=== PATIENT | female | born 1960 | race Caucasian/White ===

== ENCOUNTER 2016-11-29 20:53 | Inpatient (IN) | payer BC ==
[~2016-11-29] VITALS: Ht 167.6 cm; Wt 135.9 kg
--- NOTE | ~2016-11-29 | PR ---
[place], [place] PROGRESS NOTE NAME: AJAY MELENDEZ [facility] #: [id number] UNIT #: [id number] ROOM: 402 DOCTOR: JOSI MURO MD,JES BIRTHDATE: [birth year] DOS: 12/03/2016 SUBJECTIVE: She has been noted reduction in respiratory symptom. There was no hemoptysis described in the last 3 days. The coughing has improved significantly. There was no chest pain. OBJECTIVE: VITAL SIGNS: Normal temperature, respiratory rate 18, heart rate 116, blood pressure 165/78. Pulse oxygen saturation on room air was 93% saturation. HEENT: Chronic obesity. NECK: Supple. CARDIOVASCULAR: S1, S2 audible. LUNGS: Without any wheeze or crackles at this time. ABDOMEN: Soft, nontender. LABORATORY DATA: BMP: Glucose was elevated at 289. Remaining electrolytes grossly normal. CBC, mild leukocytosis with WBC count of 11,000. The chest x-ray of the patient done this morning shows marked reduction and improvement in the area of consolidation of the right middle lobe. However, the resolution was still noted incomplete. IMPRESSION: 1. Atypical consolidation acute pneumonia, which has been improving progressively. 2. Hemoptysis, which has been noted only on admission, resolved completely at this time. PLAN OF TREATMENT: The patient could be discharged on oral antibiotics. Outpatient followup suggested postdischarge to monitor the current abnormality of the right middle lobe until complete resolution. JES PRATER MD CM:PNTRANS [id number] JES MURO MD 12/04/16 0707 interface
--- NOTE | ~2016-11-29 | CON ---
[place], [place] REPORT OF CONSULTATION NAME: AJAY MELENDEZ [facility] #: [id number] UNIT #: [id number] ROOM: 402 DOCTOR: JES MARX MD BIRTHDATE: [birth year] DOS: 12/01/2016 DATE OF SERVICE: 12/01/2016 CONSULTATION REQUESTED BY: Hospitalist services. REASON FOR CONSULTATION: To assess the patient's symptoms of shortness of breath, pneumonia and others. HISTORY OF PRESENT ILLNESS: A 56-year-old female who has been known to me from the past. The patient has been admitted to the hospital in April 2015. She has been noted with acute exacerbation of bronchial asthma at that time with acute bilateral lower lobe pneumonia with a very resistant infection, ESBL producing E. coli. The patient was treated in the hospital and [facility] with complete resolution of all the acute symptoms including pneumonia. She was noted in usual state of health and has been admitted under care of the hospitalist service, came in on 11/30/2016 because of increased shortness of breath. The patient's symptoms of shortness of breath started at least 5 days ago. For the past 3 days, she has been noted with a cough with hemoptysis which was mixed with the mucus as per patient. The symptoms have been noted intermittently at times. The patient denies any symptoms of wheezing. She does complain of pain, which is described to be on the right side of the chest, moderate to severe, nonradiating, worsens with cough. The patient denies any symptoms of chest trauma. REVIEW OF SYSTEMS: CONSTITUTIONAL: She does complain of fatigue and tiredness, fever or chills prior to admission to the hospital. HEENT: Eyes: Denies any discharge, burning, redness, or diplopia. Ear, Nose and Throat: Denies any symptoms of epistaxis, postnasal drainage, sore throat, hoarseness, or earache. CARDIOVASCULAR: Denies anginal pain or palpitations. GASTROINTESTINAL: Denies symptoms of nausea, vomiting, diarrhea, abdominal pain, hematemesis, melena, or hematochezia. GENITOURINARY: Denies dysuria, suprapubic pain, or hematuria. SKIN: Denies any lesions or rashes. MUSCULOSKELETAL: Denies acute joint pain, redness, or tenderness. CENTRAL NERVOUS SYSTEM: Denies dizziness, headache, diplopia or syncopal episodes. EXTREMITIES: Denies any symptoms of pain in the lower extremities. Remaining systems were reviewed and they were noted all negative. PAST MEDICAL HISTORY: Review for the patient were done on 04/2015 admission. 1. The patient remained in the hospital for several days, treated for acute respiratory failure, for acute exacerbation of bronchial asthma and acute E. Coli pneumonia, was noted ESBL producing species. 2. Past history of uncomplicated moderate persistent bronchial asthma. 3. Type 2 diabetes mellitus. 4. Chronic obesity. [place], [place] REPORT OF CONSULTATION NAME: AJAY MELENDEZ UNIT #: [id number] ROOM: 402 DOCTOR: JES MARX MD BIRTHDATE: [birth year] 5. Essential hypertension. 6. History of hypothyroidism. 7. Acute pneumonia for this patient in April 2015. 8. History of allergic rhinitis as well. 9. History of morbid obesity with BMI 46 or greater. 10. History of hyperlipidemia. PAST SURGICAL HISTORY: 1. Surgery of the lower back. 2. Surgery of the sinuses. 3. Therapeutic bronchoscopy that was done in 04/2015 admission. SOCIAL HISTORY: The patient is , lives at home, and has one child. There was no history of alcohol or illicit drug use, tobacco use or any occupation-related pulmonary exposure history was known. FAMILY HISTORY: Noted for diabetes mellitus. MEDICATIONS: Current administered medications noted use of Levemir insulin, albuterol sulfate with p.r.n. use of DuoNeb, Advair 500/50 one inhalation b.i.d., Mucinex 1200 mg b.i.d., Solu-Medrol 60 mg t.i.d., Flonase 1 spray each nostril b.i.d., vitamin D, magnesium oxide, potassium chloride, fenofibrate, Singulair, loratadine with pseudoephedrine combination, lisinopril, levothyroxine, IV Rocephin and Zithromax. DRUG ALLERGIES: THE PATIENT WAS NOTED TO HAVE ALLERGY TO: 1. ASPIRIN. 2. BACTRIM. 3. PHENERGAN. PHYSICAL EXAMINATION: GENERAL: A 56-year-old female who has been noted currently without any acute distress. VITAL SIGNS: Height of 5 feet 6 inches, weight of 299 pounds, BMI 48.8. The vital signs for the patient which were recorded showed the temperature noted at 99 degrees Fahrenheit, normal temperature since admission. The respiratory rate ranging between 18-22, heart rate 99-120 with sinus tachycardia, blood pressure 140/71 to 144/87. HEENT: Finding of rosacea of the cheek for the patient was considered. NECK: Supple, short and obese. Decreased posterior pharyngeal space with high tongue base. CARDIOVASCULAR: S1, S2 is audible. LUNGS: The patient was noted with moderate decreased breath sounds with expiratory wheezing. Occasional crackles on the right side was noted. ABDOMEN: Soft, obese, nontender. EXTREMITIES: The patient shows chronic obesity without any edema, clubbing or cyanosis. CENTRAL NERVOUS SYSTEM: The patient was noted without any gross focal neurologic deficit. EXTREMITIES: Show no edema, clubbing or cyanosis. [place], [place] REPORT OF CONSULTATION NAME: AJAY MELENDEZ UNIT #: [id number] ROOM: [facility] DOCTOR: JES MARX MD BIRTHDATE: [birth year] CENTRAL NERVOUS SYSTEM: Cranial nerves 2-12 intact. MUSCULOSKELETAL: Were not showing any acute deformities. LABORATORY DATA: Lactic acid on 11/29/2016 was normal. 11/29/2016 CBC: WBC count of 20.5, hemoglobin 14.1, hematocrit 43.6, platelet count 277,000. BMP with glucose 332. BUN and creatinine was normal, sodium 131. Remaining electrolytes were normal. LFTs for the patient, which were also done on 11/29/2016 were noted as grossly normal except bilirubin mildly elevated at 1.1, is a total bilirubin. PT/PTT for the patient on 11/29/2016 were normal. CBC yesterday, WBC count was 18.1, remaining CBC remains unchanged as of yesterday. CMP: Glucose of 362, sodium was noted at ____. Remaining electrolytes were normal. Blood cultures from the of this month, preliminary reported no bacterial growth after the 48 hours. Final culture results were pending. CBC this morning: WBC count was 15.7, hemoglobin 12.8, hematocrit 41.3, platelet count 216,000. Review of the radiology data: Area of right middle lobe atelectasis. The patient was noted with possibility of infiltration. These findings were considered new as compared with the chest x-ray of the patient from 04/28/2015. CTA of the chest was also done for this patient, which has been ordered by the hospitalist services on 11/30/2016, was reviewed. There was no evidence of pulmonary embolism. Review of the lung windows for this patient was noted with finding of some ground glass opacity sparing some of the lung. Large consolidation. The patient was noted with some air bronchogram involving the medial subsegment of the right lower lobe. Remaining lung was noted clear. The review of the mediastinal window for this patient was also completed. There was no significant lymphadenopathy noted in the mediastinum. IMPRESSION: 1. The patient who has been currently admitted to the hospital with severe pain in the chest associates with respiratory symptoms. Current abnormality suggests most likely acute bacterial pneumonia, community-acquired infection resulting in hemoptysis. However, the abnormality need to be closely monitored until resolution because of the hemoptysis and current appearance. The differential of the pneumonia would be considered non-aspiration pneumonia for patient such as Legionella pneumonia and streptococcal pneumonia. 2. The patient with immunosuppression with history of type 2 diabetes mellitus. The patient was also noted with past history of pneumonia and second pneumonia the patient has been noted at this time. The patient does not manifest any GI symptoms suggestive of aspirations. 3. Acute exacerbation of bronchial asthma noted as well at the present time. 5. History of chronic obesity suggestive of possibility of obstructive sleep apnea disorder as well. PLAN OF MANAGEMENT: IgG and IgG subclasses will be ordered for this patient for the assessment of the immune status. IV Solu-Medrol dose will be decreased for this patient in the lower dose because of reduction in the wheezing. Continue monitoring results of the sputum culture as well as the blood cultures. Close monitoring for the hemoptysis, consideration for the bronchoscopy again for the patient possibly on this admission to exclude any endobronchial lesions. Bronchodilator will be continued previously in progress. Usual care, other supportive plan of management. No changes in the treatment for this patient for [place], [place] REPORT OF CONSULTATION NAME: AJAY MELENDEZ UNIT #: [id number] ROOM: 402 DOCTOR: JES MARX MD BIRTHDATE: [birth year] the other management, plan of care. Usual care. The patient is also getting amoxicillin that will be discontinued, as the use of the amoxicillin would not be necessary since the patient is already getting adequate antibiotics for coverage of all the current suspected infections. Close monitoring chest x-ray, followup chest x-ray will be done for this patient in the next couple of days to reassess the progression of the current disease. Sputum for Gram stain culture was ordered as well. The ESR was also ordered to assess the inflammation burden. Additional treatment changes to be made for this patient based on progression of the illness. DVT prophylaxis with SCD for this patient as well. Thanks for allowing me to participate in the care of this patient. JES PRATER MD CM:CONSTR:REPORT OF CONSULTATION 1217 12/04/16 0323 interface
--- NOTE | ~2016-11-29 | PR ---
[place], [place] PROGRESS NOTE NAME: AJAY MELENDEZ [facility] #: [id number] UNIT #: [id number] ROOM: 402 DOCTOR: JES MARX MD BIRTHDATE: [birth year] DOS: 12/02/2016 SUBJECTIVE: The patient has been noted comfortable at this time without any distress. Denies any further episodes of hemoptysis. Shortness of breath has been decreasing. She has not been using the BiPAP at this time, which has been ordered at the beginnings used by the patient for a few hours. OBJECTIVE: VITAL SIGNS: Shows a normal temperature, respiratory rate 20, heart rate 74, blood pressure 149/60. The pulse oxygen saturation on 2 liters cannula 94% saturation recorded. HEENT: Examination showed no acute change. NECK: Supple. CARDIOVASCULAR: S1, S2 audible. LUNGS: Noted with [id number] decreased breath sounds bilaterally. ABDOMEN: Soft, nontender. LABORATORY DATA: For today, BMP that was done this morning showed glucose 304, BUN and creatinine other electrolytes all normal. CBC this morning, WBC count 14.6, hemoglobin and hematocrit normal, platelet count was noted as normal. ESR was noted, which was done on the 12/01/2016 as 45. The blood culture from the 14 of this month for admission showed no bacterial growth. IMPRESSION: 1. Acute large pneumonia with consolidation, rule out any malignancy underlying for this patient with possible endobronchial obstruction in the right middle lobe. 2. Chronic obesity with diabetes mellitus as well. 3. Rule out immunodeficiency. PLAN OF MANAGEMENT: Repeat chest x-ray of the patient for the morning has been ordered. Continuation of current antibiotics, bronchodilators. Discontinue the BiPAP since the patient has not been using the BiPAP at this time. Other plan of management to be continued as previously. Usual care, other supportive plan of therapy and treatments. Continue maximizing medical management of uncontrolled diabetes mellitus. She had the blood glucose still noticed significantly elevated. Supportive care, plan of management and treatment. The treatment changes for the patient needs to be made for this patient based on the progression of the illness. [place], [place] PROGRESS NOTE NAME: AJAY MELENDEZ [facility] #: [id number] UNIT #: [id number] ROOM: 402 DOCTOR: JES MARX MD BIRTHDATE: [birth year] JES PRATER MD CM:LEANN [id number] JES MURO MD 12/03/16 1207 interface
[~2016-11-29 20:53] MED LIST: ADVAIR 500/501 E1 INH; ADVAIR 500/501 EA INH; ALBUTEROL2 MG PO; ALBUTEROL2.5 MG/0.5 INH; ALLEGRA-D 60 MG1 TE1 PO; ALLEGRA-D 60MG60 MG PO; AMOXICILLIN500 M2 PO; ANTIVERT/2525 M1 PO; CLINDAMYCIN HC300 MG PO; FENOFIBRATE145 M1 PO; FENOFIBRATE145 MG PO; HUMALOG100 U/ML SC; INVANZ1 GM/50 ML IV; KLOR-CON M2020 ME1 PO; LANTUS SOLOS100 U/M1 SC; LANTUS100 U/ML SC; LEVOFLOXACIN500 MG PO; LEVOTHYROXINE0.1 M1 PO; LEVOTHYROXINE0.1 MG PO; LISINOPRIL20 MG PO; LOTEMAX 0.5% 1010 ML OPH; LOTEMAX5 GM OP; MAGNESIUM OXID400 MG PO; MAGNESIUM400 M1 PO; Meclizine25 MG PO; NASACORT A55 MCG/Act NS; NASONEX0.05 MG/AC NAS; POLYTRIM 1000010 M1 OPH; PREDNISONE10 MG PO; PREDNISONE5 MG PO; REFRESH OPTIVE10 M1 OP; SINGULAIR10 M1 PO; TRICOR48 MG PO; VENTOLIN H0.09 MG/AC INH; VITAMIN D31000 IU PO; VITAMIN D32000 UNIT PO; ZESTRIL10 MG PO; ZOFRAN ODT4 MG PO; ZOFRAN ODT4 MG SL
[2016-11-29 20:55] VITALS: BP 143/70
[2016-11-29 21:26] VITALS: BP 143/70
[2016-11-29 21:48] LABS: BASO # 0.1 10*3/uL (0.0-0.1); BASO % 0.3 % (0.0-1.0); EOS # 0.1 10*3/uL (0.0-0.4); EOS % 0.3 % (1.0-4.0); HEMATOCRIT 43.6 % (37.0-47.0); HEMOGLOBIN 14.1 g/dl (12.0-16.0); LYMPH # 2.2 10*3/uL (1.3-4.4); LYMPH % 10.7 % (27.0-41.0); MEAN CELL VOLUME 76.5 fl (81.0-99.0); MEAN CORPUSCULAR HGB 24.7 pg (27.0-31.0); MEAN CORPUSCULAR HGB CONC 32.3 g/dl (33.0-37.0); MEAN PLATELET VOLUME 10.1 fl (9.6-12.3); MONO # 1.4 10*3/uL (0.1-1.0); MONO % 6.6 % (3.0-9.0); NEUT # 16.7 10*3/uL (2.3-7.9); NEUT % 81.4 % (47.0-73.0); PLATELET COUNT AUTOMATED 277 10*3/uL (130-400); RED CELL DISTRI WIDTH 17.1 % (0-14.5); WHITE BLOOD COUNT 20.5 10*3/uL (4.8-10.8)
[2016-11-29 21:58] LABS: ACT PARTIAL THROMBO TIME 24.4 SECONDS (20.8-31.5)
[2016-11-29 22:03] LABS: ALBUMIN 3.5 gm/dl (3.1-4.5); ALKALINE PHOSPHATASE 81 U/L (45-117); BUN 19 mg/dl (7-24); CHLORIDE 97 mmol/L (98-107); CREATININE 0.76 mg/dL (0.55-1.02); LIPASE 130 U/L (73-393); MAGNESIUM 1.8 mg/dL (1.5-2.1); POTASSIUM 3.8 mmol/L (3.5-5.1); SGOT/AST 18 IU/L (3-35); SGPT/ALT 38 U/L (12-78); SODIUM 131 mmol/L (136-145)
[2016-11-29 22:07] LABS: TROPONIN I < 0.015 ng/ml (<0.045)
--- NOTE | 2016-11-29 23:26 | NUR ---
PT PLACED ON AND OFF BEDPAN.LINENS CHANGED.
[2016-11-30] VITALS (8 sets, daily range): BP systolic 112–164; BP diastolic 62–110
--- NOTE | 2016-11-30 01:27 | NUR ---
PT WALKED TO THE BATHROOM, GAIT STEADY AT THIS TIME, PT DENIES ANY PAIN TORADOL EFFECTIVE FOR PAIN.
--- NOTE | 2016-11-30 02:00 | NUR ---
A 56, admitted to , under the services of CHLOE John DO with a diagnosis of SEPSIS AND PNEUMONIA. Chief complaint is SOB. Patient arrived via stretcher from ER. Monitor applied. Initial assessment completed. Vital signs taken and recorded. CHLOE JOHN DO notified of admission to the unit. Orders received. See assessment for past medical history, medications and allergies. Patient and/or family oriented to unit. [address] visitation policy reviewed MEDICATION RECONCILIATION COMPLETED AND PHYSICIAN NOTIFIED OF PATIENTS ARRIVAL. Clothing/patient valuable form completed. MIRTHA SANCHEZ
[2016-11-30] MEDS ORDERED: BACLOFEN20 M1 PO (02:38)
[2016-11-30] MEDS ORDERED: FLONASE ALLERG9.9 ML NAS (03:07)
[2016-11-30] MEDS ORDERED: LEVEMIR100 UNIT/1 SC (03:09)
[2016-11-30] MEDS ORDERED: NOVOLOG10 ML IV (03:11)
[2016-11-30] MEDS ORDERED: PREDNISONE5 M1 PO (03:17)
--- NOTE | 2016-11-30 05:10 | NUR ---
MORPHINE GIVEN FOR ACUTE PAIN RATED 7/10, WILL MONITOR.
--- NOTE | 2016-11-30 05:45 | NUR ---
MORPHIN EFFECTIVE PATIENT RATED PAIN 4/10.
[2016-11-30 06:05] LABS: BASO % 0.2 % (0.0-1.0); EOS # 0.1 10*3/uL (0.0-0.4); EOS % 0.3 % (1.0-4.0); HEMATOCRIT 40.9 % (37.0-47.0); LYMPH # 1.9 10*3/uL (1.3-4.4); LYMPH % 10.7 % (27.0-41.0); MEAN CELL VOLUME 77.8 fl (81.0-99.0); MEAN CORPUSCULAR HGB 24.7 pg (27.0-31.0); MEAN CORPUSCULAR HGB CONC 31.8 g/dl (33.0-37.0); MEAN PLATELET VOLUME 10.6 fl (9.6-12.3); MONO # 1.1 10*3/uL (0.1-1.0); NEUT # 14.8 10*3/uL (2.3-7.9); NEUT % 81.8 % (47.0-73.0); PLATELET COUNT AUTOMATED 224 10*3/uL (130-400); RED BLOOD COUNT 5.26 10*6/uL (4.10-5.10); RED CELL DISTRI WIDTH 17.2 % (0-14.5); WHITE BLOOD COUNT 18.1 10*3/uL (4.8-10.8)
[2016-11-30 06:15] LABS: ALBUMIN 3.2 gm/dl (3.1-4.5); BUN 15 mg/dl (7-24); CHLORIDE 102 mmol/L (98-107); CHOLESTEROL 166 mg/dL (<200); CREATININE 0.75 mg/dL (0.55-1.02); PHOSPHOROUS 2.2 mg/dL (2.5-4.9); POTASSIUM 3.9 mmol/L (3.5-5.1); SGOT/AST 12 IU/L (3-35); SGPT/ALT 30 U/L (12-78); SODIUM 134 mmol/L (136-145); TOTAL PROTEIN 6.4 gm/dL (6.4-8.2); TRIGLYCERIDES 382 mg/dl (<150); VLDL CHOLESTEROL 76 mg/dL (6-40)
[2016-11-30 06:22] LABS: ALKALINE PHOSPHATASE 69 U/L (45-117); FREE T4 1.48 ng/dl (0.76-1.46); HDL CHOLESTEROL 51 mg/dl (40-60); LDL CHOLESTEROL 39 mg/dL (9-159)
[2016-11-30 06:23] LABS: ACT PARTIAL THROMBO TIME 27.5 SECONDS (20.8-31.5)
[2016-11-30 09:02] LABS: VITAMIN D, 25-HYDROXY 23.8 ng/mL (30-100)
--- NOTE | 2016-11-30 09:34 | NUR ---
Administrative Assistant Office Manager in to talk to patient. Patient states lives at home with . There are few steps in the home. Physician: clarence orozco Pharmacy: [facility] health services: none Patient's level of ADLs: INDEPENDENT Patient has working utilities: all working DME: walker, nebulizer Follow-up physician's appointment after d/c: will be made by hospitalist nurse director upon discharge Does patient want to access PORTAL?: no Discharge plan discussed with patient, patient lives at home with , states she normally gets around fine, but has MS and sometimes needs to use a walker, she has a nebulizer, no home oxygen, patient states she will be going back home when able and denies any home needs. CONOR ODOM
[2016-12-01] VITALS: BP 154/93
--- NOTE | 2016-12-01 00:26 | NUR ---
24 HR chart check completed.
[2016-12-01 05:16] LABS: BUN 20 mg/dl (7-24); CHLORIDE 108 mmol/L (98-107); CREATININE 0.76 mg/dL (0.55-1.02); PHOSPHOROUS 2.4 mg/dL (2.5-4.9); POTASSIUM 4.6 mmol/L (3.5-5.1); SODIUM 139 mmol/L (136-145)
[2016-12-01 05:48] LABS: BASO % 0.1 % (0.0-1.0); HEMATOCRIT 41.3 % (37.0-47.0); HEMOGLOBIN 12.8 g/dl (12.0-16.0); LYMPH # 1.2 10*3/uL (1.3-4.4); LYMPH % 7.3 % (27.0-41.0); MEAN CORPUSCULAR HGB 24.5 pg (27.0-31.0); MEAN PLATELET VOLUME 10.5 fl (9.6-12.3); MONO # 0.7 10*3/uL (0.1-1.0); MONO % 4.5 % (3.0-9.0); NEUT # 13.7 10*3/uL (2.3-7.9); NEUT % 87.1 % (47.0-73.0); PLATELET COUNT AUTOMATED 216 10*3/uL (130-400); RED BLOOD COUNT 5.23 10*6/uL (4.10-5.10); RED CELL DISTRI WIDTH 17.1 % (0-14.5); WHITE BLOOD COUNT 15.7 10*3/uL (4.8-10.8)
[2016-12-01 08:00] VITALS: BP 140/71
[2016-12-01 12:00] VITALS: BP 172/86
--- NOTE | 2016-12-01 12:00 | NUR ---
NOTIFIED OF PT'S BP; ORDERS OBTAINED.
--- NOTE | 2016-12-01 13:17 | NUR ---
PATIENT MEDICATED WITH IV HYDRALAZINE PER ORDER FOR BP 180/90. WILL MONITOR.
[2016-12-01 14:00] VITALS: BP 164/88
--- NOTE | 2016-12-01 14:00 | NUR ---
BP DOWN TO 164/88 AT THIS TIME, HYDRALAZINE HAS BEEN EFFECTIVE.
[2016-12-01 16:00] VITALS: BP 178/96
--- NOTE | 2016-12-01 16:49 | NUR ---
NOTIFIED OF PT'S BLOOD PRESSURE.
[2016-12-01 20:00] VITALS: BP 168/95
[2016-12-02] VITALS: BP 168/95
[2016-12-02 04:00] VITALS: BP 145/60
[2016-12-02 05:28] LABS: BUN 22 mg/dl (7-24); CHLORIDE 102 mmol/L (98-107); CREATININE 0.65 mg/dL (0.55-1.02); PHOSPHOROUS 2.8 mg/dL (2.5-4.9); POTASSIUM 3.9 mmol/L (3.5-5.1); SODIUM 139 mmol/L (136-145)
[2016-12-02 05:55] LABS: BASO % 0.1 % (0.0-1.0); HEMATOCRIT 39.4 % (37.0-47.0); HEMOGLOBIN 12.6 g/dl (12.0-16.0); LYMPH # 1.4 10*3/uL (1.3-4.4); LYMPH % 9.3 % (27.0-41.0); MEAN CELL VOLUME 79.1 fl (81.0-99.0); MEAN CORPUSCULAR HGB 25.3 pg (27.0-31.0); MEAN PLATELET VOLUME 10.5 fl (9.6-12.3); MONO # 0.6 10*3/uL (0.1-1.0); MONO % 4.3 % (3.0-9.0); NEUT # 12.4 10*3/uL (2.3-7.9); NEUT % 85.1 % (47.0-73.0); PLATELET COUNT AUTOMATED 257 10*3/uL (130-400); RED BLOOD COUNT 4.98 10*6/uL (4.10-5.10); RED CELL DISTRI WIDTH 17.2 % (0-14.5); WHITE BLOOD COUNT 14.6 10*3/uL (4.8-10.8)
[2016-12-02 08:00] VITALS: BP 151/83
--- NOTE | 2016-12-02 08:10 | NUR ---
PATIENT COMPLAINING OF PAIN IN LEGS & ARM BILATERALLY. PT RATES IT 09/24. MEDICATED WITH NORCO PER ORDER. WILL MONITOR FOR EFFECTIVENESS.
--- NOTE | 2016-12-02 09:30 | NUR ---
PER PATIENT, MEDICATION HAS BEEN EFFECTIVE FOR PAIN.
[2016-12-02 12:00] VITALS: BP 160/86
[2016-12-02 16:00] VITALS: BP 149/85
[2016-12-02 20:00] VITALS: BP 135/80; BP 157/86
[2016-12-03] VITALS: BP 149/77
[2016-12-03 04:08] VITALS: BP 149/77
[2016-12-03 06:24] LABS: BASO % 0.3 % (0.0-1.0); HEMATOCRIT 42.1 % (37.0-47.0); HEMOGLOBIN 13.3 g/dl (12.0-16.0); LYMPH # 1.9 10*3/uL (1.3-4.4); LYMPH % 17.4 % (27.0-41.0); MEAN CELL VOLUME 78.3 fl (81.0-99.0); MEAN CORPUSCULAR HGB 24.7 pg (27.0-31.0); MEAN CORPUSCULAR HGB CONC 31.6 g/dl (33.0-37.0); MEAN PLATELET VOLUME 10.3 fl (9.6-12.3); MONO # 0.6 10*3/uL (0.1-1.0); MONO % 5.1 % (3.0-9.0); NEUT # 8.2 10*3/uL (2.3-7.9); PLATELET COUNT AUTOMATED 265 10*3/uL (130-400); RED BLOOD COUNT 5.38 10*6/uL (4.10-5.10); RED CELL DISTRI WIDTH 17.2 % (0-14.5)
[2016-12-03 06:45] LABS: BUN 23 mg/dl (7-24); CHLORIDE 97 mmol/L (98-107); CREATININE 0.69 mg/dL (0.55-1.02); POTASSIUM 3.9 mmol/L (3.5-5.1); SODIUM 136 mmol/L (136-145)
[2016-12-03 08:00] VITALS: BP 165/78
--- NOTE | 2016-12-03 09:00 | NUR ---
case management visits with patient, patient denies any home needs at this time
[2016-12-03] MEDS ORDERED: HYDR25T PO (09:17)
[2016-12-03] MEDS ORDERED: KLOR-CON M2020 ME1 PO (09:17)
[2016-12-03] MEDS ORDERED: DOXYCYCLINE100 M3 PO (09:18)
[2016-12-03] MEDS ORDERED: PREDNISONE10 MG PO (09:19)
[2016-12-03] MEDS ORDERED: LANTUS SOL100 UNIT/1 SC (09:34)
[2016-12-03] MEDS ORDERED: LEVEMIR100 UNIT/1 SC (09:34)
--- NOTE | 2016-12-03 12:42 | NUR ---
ATTEMPTED TO D/C PT AND WAS EDUCATING PT ON NEW MEDS, CHANGE OF CURRENT MEDS AND CONTINUED MEDS AND PT BECAME CONFRONTATIONAL D/T NO ORDER FOR DUONEBS TX. DURING FURTHER DISCUSSIONB PT STATED SHE WAS ON ALBUTEROL TX AT HOME AND DOES OWN A NEBULIZER. I THEN EXPLAINED TO HER THAT DUONEB TX ARE ALBUTEROL TX'S SHE BECAME INCREASINGLY AGITATED AND TOLD ME I WAS WRONG. I THEN PAGED MAXIMILIANO BOLTON TO EXPLAIN RESP MEDS SHE HAD BEEN ON DURING THIS STAY. PT THEN TELLS ME THAT SHE WAS UPSET FROM THE [facility] VISIT WHEN "THEY ", MEANING US,"MESSED UP HER HOME MEDS". I THEN EXPLAINED THAT THIS WAS WHY I WENT INTO DETAIL FOR HER. WHEN MAXIMILIANO BOLTON RT ARRIVED TO ROOM PT THEN ACCUSED ME OF "Arguing " WITH HER AND THREW ME OUT OF ROOM AFTER MAXIMILIANO EXPLAINED TO HER THE SAME THING. I THEN NOTIFIED KIARA WAGNER RN MGR. SHE THEN WENT TO SEE PT.
--- NOTE | 2016-12-03 13:24 | NUR ---
Discharge instructions reviewed with patient/family. Patient receptive and verbalizes understanding. Follow-up care arranged. Written instructions given to patient/family. HILL BRADLEY
[2016-12-03 17:10] LABS: IGG SUBCLASS 1 325 mg/dL (248-810); IGG SUBCLASS 2 103 mg/dL (130-555); IGG SUBCLASS 3 27 mg/dL (15-102); IGG SUBCLASS 4 3 mg/dL (2-96)
== END 2016-12-03 13:24 | disposition home or self-care (01) | DRG 871 ==
LOC: ED 20:53 → EDHOLD 11-30 01:17 → 4E 11-30 01:17 → EDBEDREQ 11-30 01:25 → 4E 11-30 01:35
PROVIDERS: Hospitalist; Internal Medicine Critical Care Medicine; Student in an Organized Health Care Education/Training Program; ADMIT Internal Medicine
PROC: 5A09357 Assistance with Respiratory Ventilation, Less than 24 Consecutive Hours, Continuous Positive Airway Pressure (ICD-10-PCS; principal; 2016-11-30)
DX: A41.9 Sepsis, unspecified organism (principal); E43 Unspecified severe protein-calorie malnutrition; J96.01 Acute respiratory failure with hypoxia; J18.1 Lobar pneumonia, unspecified organism; E87.8 Other disorders of electrolyte and fluid balance, not elsewhere classified; E87.1 Hypo-osmolality and hyponatremia; E11.65 Type 2 diabetes mellitus with hyperglycemia; J45.901 Unspecified asthma with (acute) exacerbation; R04.2 Hemoptysis; J98.11 Atelectasis; Z68.42 Body mass index [BMI] 45.0-49.9, adult; R65.20 Severe sepsis without septic shock; G35 Multiple sclerosis; E78.5 Hyperlipidemia, unspecified; D50.9 Iron deficiency anemia, unspecified; E78.1 Pure hyperglyceridemia; E66.01 Morbid (severe) obesity due to excess calories; E83.39 Other disorders of phosphorus metabolism; E55.9 Vitamin D deficiency, unspecified; Z79.4 Long term (current) use of insulin; Z88.6 Allergy status to analgesic agent; Z88.1 Allergy status to other antibiotic agents; Z88.8 Allergy status to other drugs, medicaments and biological substances; Z79.899 Other long term (current) drug therapy; Z83.3 Family history of diabetes mellitus; Z82.49 Family history of ischemic heart disease and other diseases of the circulatory system

== ENCOUNTER → 2017-01-25 | Outpatient (CLI) | payer BC ==
[~2017-01-25] MED LIST changes: +BACLOFEN20 M1 PO; +DOXYCYCLINE100 M3 PO; +FLONASE ALLERG9.9 ML NAS; +HYDR25T PO; +LANTUS SOL100 UNIT/1 SC; +LEVEMIR100 UNIT/1 SC; +NOVOLOG10 ML IV; +PREDNISONE5 M1 PO
[2017-01-25 09:39] LABS: BASO # 0.1 10*3/uL (0.0-0.1); BASO % 0.6 % (0.0-1.0); EOS # 0.3 10*3/uL (0.0-0.4); EOS % 2.5 % (1.0-4.0); HEMATOCRIT 42.9 % (37.0-47.0); HEMOGLOBIN 13.8 g/dl (12.0-16.0); LYMPH # 3.5 10*3/uL (1.3-4.4); MEAN CELL VOLUME 77.7 fl (81.0-99.0); MEAN CORPUSCULAR HGB CONC 32.2 g/dl (33.0-37.0); MEAN PLATELET VOLUME 10.5 fl (9.6-12.3); MONO # 0.6 10*3/uL (0.1-1.0); NEUT # 5.5 10*3/uL (2.3-7.9); NEUT % 55.3 % (47.0-73.0); PLATELET COUNT AUTOMATED 271 10*3/uL (130-400); RED BLOOD COUNT 5.52 10*6/uL (4.10-5.10); RED CELL DISTRI WIDTH 16.8 % (0-14.5)
[2017-01-25 10:11] LABS: ALBUMIN 3.6 gm/dl (3.1-4.5); BUN 20 mg/dl (7-24); CHLORIDE 98 mmol/L (98-107); CREATININE 0.96 mg/dL (0.55-1.02); POTASSIUM 3.9 mmol/L (3.5-5.1); SGOT/AST 18 IU/L (3-35); SGPT/ALT 35 U/L (12-78); SODIUM 134 mmol/L (136-145)
[2017-01-25 10:21] LABS: ALKALINE PHOSPHATASE 78 U/L (45-117); TOTAL PROTEIN 6.9 gm/dL (6.4-8.2)
== END | disposition home or self-care (01) ==
LOC: LAB 09:02
PROVIDERS: Internal Medicine
DX: E78.5 Hyperlipidemia, unspecified (principal); R53.83 Other fatigue

== ENCOUNTER → 2017-04-10 | Outpatient (CLI) | payer BC ==
[2017-04-10 16:59] LABS: BASO % 0.4 % (0.0-1.0); EOS # 0.2 10*3/uL (0.0-0.4); EOS % 1.8 % (1.0-4.0); HEMATOCRIT 42.4 % (37.0-47.0); HEMOGLOBIN 14.1 g/dl (12.0-16.0); LYMPH # 2.8 10*3/uL (1.3-4.4); LYMPH % 27.1 % (27.0-41.0); MEAN CELL VOLUME 76.8 fl (81.0-99.0); MEAN CORPUSCULAR HGB 25.5 pg (27.0-31.0); MEAN CORPUSCULAR HGB CONC 33.3 g/dl (33.0-37.0); MEAN PLATELET VOLUME 10.4 fl (9.6-12.3); MONO # 0.7 10*3/uL (0.1-1.0); MONO % 6.4 % (3.0-9.0); NEUT # 6.5 10*3/uL (2.3-7.9); NEUT % 63.9 % (47.0-73.0); PLATELET COUNT AUTOMATED 268 10*3/uL (130-400); RED BLOOD COUNT 5.52 10*6/uL (4.10-5.10); RED CELL DISTRI WIDTH 16.3 % (0-14.5); WHITE BLOOD COUNT 10.1 10*3/uL (4.8-10.8)
[2017-04-10 17:14] LABS: ALBUMIN 3.5 gm/dl (3.1-4.5); CREATININE 1.16 mg/dL (0.55-1.02); POTASSIUM 4.1 mmol/L (3.5-5.1); TOTAL PROTEIN 6.7 gm/dL (6.4-8.2)
[2017-04-11 07:12] LABS: IMMUNOGLOBULIN G, QNT 542 mg/dL (700-1600); IMMUNOGLOBULIN M, QNT 27 mg/dL (26-217)
[2017-04-11 08:14] LABS: HIV 1+2 AB + HIV1 P24 AG Non Reactive (Non Reactive)
== END | disposition home or self-care (01) ==
LOC: LAB 16:22
PROVIDERS: Internal Medicine Infectious Disease
DX: B99.9 Unspecified infectious disease (principal)

== ENCOUNTER → 2018-08-19 | Outpatient (CLI) | payer BC ==
[~2018-08-19] MED LIST changes: +ALLEGRA-D 24 H1 EACH PO; +CARAFATE1 GM/10 ML PO; +FLUTICASONE-SA1 EAC5 INH; +KEFLEX500 M1 PO; +LIDODERM1 EACH T; +NARCAN4 MG NAS; +NORCO 10-325 T1 EACH PO; +NOVOLOG FL100 UNIT/2 SQ; +ONE DAILY ESSE1 EACH PO; +PRILOSEC20 M1 PO; +PROVENTIL HFA6.7 GM INH
== END | disposition home or self-care (01) ==
LOC: LAB 06:57
DX: D83.9 Common variable immunodeficiency, unspecified (principal)

== ENCOUNTER 2019-05-24 05:52 | Inpatient (IN) | payer MEDICAID ==
[~2019-05-24] VITALS: Ht 167.6 cm; Wt 128.2 kg
[2019-05-24 05:59] VITALS: BP 161/76
[2019-05-24 07:04] LABS: BASO % 0.2 % (0.0-1.0); EOS # 0.2 10*3/uL (0.0-0.4); EOS % 5.6 % (1.0-4.0); HEMATOCRIT 37.9 % (37.0-47.0); HEMOGLOBIN 11.9 g/dl (12.0-16.0); LYMPH # 0.3 10*3/uL (1.3-4.4); LYMPH % 6.4 % (27.0-41.0); MEAN CELL VOLUME 78.6 fl (81.0-99.0); MEAN CORPUSCULAR HGB 24.7 pg (27.0-31.0); MEAN CORPUSCULAR HGB CONC 31.4 g/dl (33.0-37.0); MEAN PLATELET VOLUME 10.1 fl (9.6-12.3); MONO # 0.3 10*3/uL (0.1-1.0); MONO % 7.8 % (3.0-9.0); NEUT # 3.4 10*3/uL (2.3-7.9); NEUT % 79.1 % (47.0-73.0); PLATELET COUNT AUTOMATED 132 10*3/uL (130-400); RED BLOOD COUNT 4.82 10*6/uL (4.10-5.10); RED CELL DISTRI WIDTH 17.2 % (0-14.5); WHITE BLOOD COUNT 4.3 10*3/uL (4.8-10.8)
[2019-05-24 07:15] LABS: ACT PARTIAL THROMBO TIME 30.9 SECONDS (20.0-32.1); INTERNATIONAL NORM RATIO 0.9 (2.0-3.5)
[2019-05-24 07:20] LABS: ALBUMIN 3.3 gm/dl (3.1-4.5); ALKALINE PHOSPHATASE 41 U/L (45-117); BUN 13 mg/dl (7-24); CHLORIDE 99 mmol/L (98-107); CREATININE 0.72 mg/dL (0.55-1.02); LIPASE 76 U/L (73-393); POTASSIUM 4.1 mmol/L (3.5-5.1); SGOT/AST 4 IU/L (3-35); SGPT/ALT 18 U/L (12-78); SODIUM 131 mmol/L (136-145); TOTAL PROTEIN 6.6 gm/dL (6.4-8.2)
[2019-05-24 07:21] LABS: TROPONIN I < 0.015 ng/ml (<0.045)
--- NOTE | 2019-05-24 07:46 | NUR ---
ASSISTED TO THE BATHROOM. UNABLE TO PROVIDE URINE SPECIMEN. NOW RESTING IN BED. CALL LIGHT IN REACH.
--- NOTE | 2019-05-24 08:26 | NUR ---
A 58, admitted to 5E, under the services of MINH Knox DO with a diagnosis of Ifluenza with Respiratory Manifestation. Chief complaint is multiple complaints. Patient arrived via stretcher from ER. Monitor applied. Initial assessment completed. Vital signs taken and recorded. MINH KNOX DO notified of admission to the unit. Orders received. See assessment for past medical history, medications and allergies. Patient and/or family oriented to unit. [address] visitation policy reviewed. Clothing/patient valuable form completed. MIRTHA SANCHEZ
[2019-05-24 08:48] VITALS: BP 125/44
[2019-05-24 08:50] VITALS: BP 125/44
--- NOTE | 2019-05-24 08:51 | NUR ---
Called [facility] pharmacy for updated med list. Closed at this time, will follow up.
--- NOTE | 2019-05-24 09:11 | NUR ---
Awaiting fax updated home med list.
--- NOTE | 2019-05-24 11:15 | NUR ---
Patient up to void. Attempted to collect UA sample, patient missed collection container.
[2019-05-24 12:00] VITALS: BP 132/55
[2019-05-24] MEDS ORDERED: OMEPRAZOLE40 MG PO (12:28)
[2019-05-24] MEDS ORDERED: LANTUS SOL100 UNIT/1 SQ (12:35)
[2019-05-24] MEDS ORDERED: LORATADINE-D 11 EACH PO (12:43)
[2019-05-24] MEDS ORDERED: MUPIROCIN15 GM T (12:46)
[2019-05-24] MEDS ORDERED: SYMJEPI0.3 MG/0.3 IJ (12:50)
--- NOTE | 2019-05-24 15:17 | NUR ---
Patient is adamant about getting an antibiotic because she has an immune deficiency and is coughing up dark colored phlem. She does not think the staff is educated enough on her condition and wants Dr.William Henderson consulted. Explained to patient that she does not need an antibiotic because she tested positive for Flu-A and its a virus. Tried to reassure patient that her test results are WNL and there is no need for antibiotics. Was empathetic with patient on how badly she feels and reassured her that I am giving her everything to treat the symptoms and that she is on Anahi-flu. Spoke with just to keep medical staff abreast of patients concerns.
[2019-05-24 16:00] VITALS: BP 155/89
--- NOTE | 2019-05-24 17:47 | NUR ---
Hayden given for c/o pain and Zofran given for c/o nausea. Will monitor.
--- NOTE | 2019-05-24 18:10 | NUR ---
Opelika and Zofran effective. Patient asleep with respirations >12.
[2019-05-24 18:12] LABS: BILIRUBIN NEGATIVE (NEGATIVE); CLARITY CLOUDY (CLEAR); COLOR ORANGE (YELLOW); GLUCOSE 3+ (NEGATIVE); KETONE 2+ (NEGATIVE)
[2019-05-24 18:13] LABS: BLOOD 3+ (NEGATIVE); LEUKO ESTERASE TRACE (NEGATIVE); NITRITE NEGATIVE (NEGATIVE); SPECIFIC GRAVITY 1.015 (1.005-1.030); UROBILINOGEN 0.2 E.U./dl (0.2-1.0)
[2019-05-24 18:16] LABS: RBC TNTC rbc/hpf (0-2)
--- NOTE | 2019-05-24 19:44 | NUR ---
24 HR chart check completed.
[2019-05-24 20:00] VITALS: BP 140/91
--- NOTE | 2019-05-24 20:47 | NUR ---
Patient is AAOX3, resting in bed with easy and regular respers on room air. Assessment is complete. Patient c/o bodyaches and nausea. Bed is low, locked, and call light is within reach. PRN tylenol given for fever of 100.0, no other PRN medications due at this time. Will continue to monitor, see shift assessment.
--- NOTE | 2019-05-24 21:41 | NUR ---
Patient c/o nausea, contacted Dr. Avila, see new orders.
--- NOTE | 2019-05-24 21:50 | NUR ---
Patient refused Reglan, stating "I am afraid I will have a reaction. I will just stick with the Zofran for now."
--- NOTE | 2019-05-24 23:55 | NUR ---
/PT MEDICATED W/NORCO FOR C/O BLE ACHES. 09/24 PT FACE FLUSHED AND SKIN WARM TO TOUCH. C/O DIZZINESS W/EXERTION AND OCC PRODUCTIVE COUGH EXPECTORATING THICK YELLOW BLOOD TINGED MUCOUS. CRACKLES/WHEEZES NOTED T/O. CALL LIGHT IN REACH.
[2019-05-25] VITALS: BP 131/50
--- NOTE | 2019-05-25 04:52 | NUR ---
PT'S TEMP 102.2. ATTEMPTED TO ADMINISTER TYLENOL PO. PT BECAME NASEOUS AND DRY HEAVING. MEDICATED W/IVP ZOFRAN AT THIS TIME. WILL ATTEMPT TO ADMINISTER TYLENOL AFTER ZOFRAN BECOMES EFFECTIVE. ICE PACK GIVEN PER PT REQUEST. CALL LIGHT IN REACH.
--- NOTE | 2019-05-25 05:00 | NUR ---
PT ACCEPTED TYLENOL AT THIS TIME. PT STATES ZOFRAN WAS EFFECTIVE.
[2019-05-25 06:52] LABS: EOS % 0.4 % (1.0-4.0); HEMATOCRIT 36.5 % (37.0-47.0); HEMOGLOBIN 11.7 g/dl (12.0-16.0); LYMPH # 0.3 10*3/uL (1.3-4.4); LYMPH % 4.7 % (27.0-41.0); MEAN CELL VOLUME 77.8 fl (81.0-99.0); MEAN CORPUSCULAR HGB 24.9 pg (27.0-31.0); MEAN CORPUSCULAR HGB CONC 32.1 g/dl (33.0-37.0); MEAN PLATELET VOLUME 9.9 fl (9.6-12.3); MONO # 0.4 10*3/uL (0.1-1.0); MONO % 6.1 % (3.0-9.0); NEUT # 6.2 10*3/uL (2.3-7.9); NEUT % 87.8 % (47.0-73.0); PLATELET COUNT AUTOMATED 121 10*3/uL (130-400); RED BLOOD COUNT 4.69 10*6/uL (4.10-5.10); RED CELL DISTRI WIDTH 17.4 % (0-14.5)
--- NOTE | 2019-05-25 07:00 | NUR ---
ARRIVED ON SHIFT, INTRODUCED TO PATIENT, BED IN LOW POSITION, WHEEL LOCKS ENGAGED, SR UP X 2 FOR TURNING AND REPOSITIONING, CALL LIGHT WITHIN REACH, NO NEEDS VOICED AT THIS TIME.
[2019-05-25 07:10] LABS: ALBUMIN 2.9 gm/dl (3.1-4.5); ALKALINE PHOSPHATASE 50 U/L (45-117); BUN 9 mg/dl (7-24); CHLORIDE 97 mmol/L (98-107); CHOLESTEROL 110 mg/dL (<200); FREE T4 1.13 ng/dl (0.76-1.46); HDL CHOLESTEROL 53 mg/dl (40-60); LDL CHOLESTEROL 31 mg/dL (9-159); PHOSPHOROUS 2.3 mg/dL (2.5-4.9); POTASSIUM 4.2 mmol/L (3.5-5.1); SGOT/AST 10 IU/L (3-35); SGPT/ALT 18 U/L (12-78); SODIUM 128 mmol/L (136-145); TOTAL PROTEIN 6.7 gm/dL (6.4-8.2); TRIGLYCERIDES 129 mg/dl (<150); VLDL CHOLESTEROL 26 mg/dL (6-40)
[2019-05-25 07:15] LABS: THYROID STIM HORMONE (HS) 0.737 uIU/ml (0.358-4.75)
[2019-05-25 07:40] LABS: VITAMIN D, 25-HYDROXY 14.9 ng/mL (30-100)
[2019-05-25 08:00] VITALS: BP 117/68
--- NOTE | 2019-05-25 08:25 | NUR ---
PATIENT C/O LE PAIN 08/25 MEDICATED WITH NORCO ORDERED PRN FOR PAIN, WHITE BOARD UPDATED, NO FURTHER NEEDS VOICED AT THIS TIME.
--- NOTE | 2019-05-25 08:48 | NUR ---
Shift chart check completed.
--- NOTE | 2019-05-25 09:00 | NUR ---
Service Cashier in to talk to patient. Patient states lives at home with . There are no steps in the home. Physician: cheryl eid Pharmacy: [facility] services: none Patient's level of ADLs: MINIMAL ASSIST Patient has working utilities: all working DME: nebulizer, walker Follow-up physician's appointment after d/c: will be made by hospitalist nurse director upon discharge Does patient want to access PORTAL?: no Discharge plan discussed with patient, she lives at home with , she uses a walker for ambulation and is independent in adls, she is receiving radiation at [facility], she states she will return home when medically stable and denies any home needs, case management will follow. CONOR ODOM
--- NOTE | 2019-05-25 09:25 | NUR ---
PATIENT REPORTS DECREASED PAIN OF 2/10 FROM NORCO GIVEN X 1 HOUR AGO.
[2019-05-25 12:00] VITALS: BP 122/68
--- NOTE | 2019-05-25 15:30 | NUR ---
PT. REFUSED AEROSOL TREATMENT AT THIS TIME.
[2019-05-25 16:00] VITALS: BP 130/69
--- NOTE | 2019-05-25 16:12 | NUR ---
CALL PLACED TO DR. PRATER ADVISED OF CONSULT, HE ORDERED ABG'S AND PULMOCORT WILL BE IN TO SEE PATIENT ON 05/26/19
[2019-05-25 16:55] LABS: ABG BASE EXCESS -2.4 mmol/L (-2.0-2.0); ARTERIAL BLOOD GAS PH 7.453 (7.35-7.45)
--- NOTE | 2019-05-25 17:22 | NUR ---
PATIENT C/O OF BILATERAL LEG KIRIT WELL NAUSEA, MEDICATED WITH NORCO AND ZOFRAN ORDERED.
--- NOTE | 2019-05-25 18:22 | NUR ---
PATIENT REPORTS SOME RELIEF FROM PAIN AND NAUSEA, AND REPORTS BOTH TOLERABLE.
[2019-05-25 20:00] VITALS: BP 133/62
[2019-05-26] VITALS: BP 120/55
--- NOTE | 2019-05-26 04:39 | NUR ---
24 HR chart check completed.
--- NOTE | 2019-05-26 06:01 | NUR ---
PT MEDICATED W/NORCO FOR C/O GENERAL BODY ACHES 7.5. PT RESTING QUIETLY IN BED. CALL LIGHT IN REACH.
[2019-05-26 06:47] LABS: BUN 9 mg/dl (7-24); CHLORIDE 99 mmol/L (98-107); CREATININE 0.78 mg/dL (0.55-1.02); POTASSIUM 4.1 mmol/L (3.5-5.1); SODIUM 130 mmol/L (136-145)
--- NOTE | 2019-05-26 07:40 | NUR ---
pt not on bipap at this time.
[2019-05-26 08:00] VITALS: BP 117/45
--- NOTE | 2019-05-26 08:00 | NUR ---
Patient resting quietly with no c/o discomfort. Respirations easy and regular. Vital signs stable. No overt distress. CHAO FAUSTIN
--- NOTE | 2019-05-26 09:00 | NUR ---
case management visits with patient, she will return home when medically stable, case management will follow for any home needs
--- NOTE | 2019-05-26 09:08 | NUR ---
Nutritional Support Services Note: Pt is on an 1800 melanie diet. Varied intakes since admit (x2 100%, x1 25%). Dx of influenza w/ respiratory manifestations. Receives night snack. Staff to continue to encourage good PO intakes. No other nutrition intervention needed at this time. Will follow if needed. EVIE Paige internal medicine nurse practitioner
[2019-05-26 12:00] VITALS: BP 121/62
--- NOTE | 2019-05-26 15:09 | NUR ---
TRANFERRED TO ICU, REPORT GIVEN.
--- NOTE | 2019-05-26 15:30 | NUR ---
Received into [facility]. Vitals stable. Remains on 2l nasal cannula with pulse ox 93%. Heart rate sinus tach 117 with frequent pac's. Bp 123/43. Offered a wayne catheter and she refuses at this time.
[2019-05-26 16:00] VITALS: BP 117/51
--- NOTE | 2019-05-26 16:00 | NUR ---
DR. PRATER CALLED AND UPDATED ON PATIENT'S CONDITION. NO FURTHER ORDERS RECEIVED. HE ADVISES TO "WATCH PATIENT."
--- NOTE | 2019-05-26 17:48 | NUR ---
PT C/O UTERINE PAIN AND NAUSEA. MEDICATED WITH NORCO AND ZOFRAN PER ORDER.
[2019-05-26 20:00] VITALS: BP 129/71
--- NOTE | 2019-05-26 20:24 | NUR ---
PT. RESTING IN BED. HEP LOCK IN YOSELYN ASYMPT. LUNGS DIMINISHED WITH EXP. WHEEZES BILAT, PULSE OX 99% WHILE RECEIVING A BREATHING TREATMENT, PULSE OX 96% ON 3L NC. ABDOMEN SOFTLY DISTENDED AND NORMO, OBESE. TRACE BLE EDEMA, EDEMA VS OBESITY. RESP. EASY AND REG NO DISTRESS. KELLY LEARY RN
--- NOTE | 2019-05-26 23:16 | NUR ---
TYLENOL GIVEN ORDERED FOR TEMP OF 100.9 AND ELEV HR. WILL CONTINUE TO MONITOR. KELLY LEARY RN
[2019-05-27] VITALS: BP 116/60
--- NOTE | 2019-05-27 02:43 | NUR ---
REPEAT TEMP 99.7, TYLENOL EFFECTIVE. WILL CONTINUE TO MONITOR.
[2019-05-27 04:00] VITALS: BP 107/65
--- NOTE | 2019-05-27 05:12 | NUR ---
PT. GIVEN ZOFRAN AND NORCO ORDERED AT 0500 FOR COMPLAINTS OF NAUSEA AND UTERINE PAIN. PT. STATED ZOFRAN EFFECTIVE FOR NAUSEA CURRENTLY SLEEPING, NORCO ALSO EFFECTIVE. KELLY LEARY RN
[2019-05-27 05:13] LABS: BUN 14 mg/dl (7-24); CHLORIDE 102 mmol/L (98-107); CREATININE 0.72 mg/dL (0.55-1.02); PHOSPHOROUS 2.4 mg/dL (2.5-4.9); POTASSIUM 4.3 mmol/L (3.5-5.1); SODIUM 133 mmol/L (136-145)
[2019-05-27 06:00] LABS: HEMATOCRIT 32.6 % (37.0-47.0); HEMOGLOBIN 10.1 g/dl (12.0-16.0); MEAN CELL VOLUME 78.4 fl (81.0-99.0); MEAN CORPUSCULAR HGB 24.3 pg (27.0-31.0); MEAN PLATELET VOLUME 10.9 fl (9.6-12.3); PLATELET COUNT AUTOMATED 118 10*3/uL (130-400); RED BLOOD COUNT 4.16 10*6/uL (4.10-5.10); RED CELL DISTRI WIDTH 17.6 % (0-14.5); WHITE BLOOD COUNT 4.7 10*3/uL (4.8-10.8)
[2019-05-27 06:29] LABS: PLATELET SUFFICIENCY LOW (NORMAL); ROULEAUX SLIGHT; TOTAL CELLS COUNTED 100 #CELLS
[2019-05-27 06:30] LABS: MICROCYTOSIS SLIGHT; POLYCHROMASIA SLIGHT
[2019-05-27 08:00] VITALS: BP 113/87
[2019-05-27 12:00] VITALS: BP 119/77
--- NOTE | 2019-05-27 13:15 | NUR ---
PT C/O ABD PAIN. VAGUE ABOUT WHAT TYPE OF PAIN OR EXACT LOCATION ON ABD, JUST STATES IT HURTS ALL OVER. DR NORTON IN [facility]U AND MADE AWARE. PT MEDICATED WITH NORCO AND ZOFRAN AT THIS TIME.
--- NOTE | 2019-05-27 13:57 | NUR ---
PT ROLLED OVER ON HER SIDE RESTING WITH EYES CLOSED SINCE BEING MEDICATED WITH ZOFRAN AND NORCO.
--- NOTE | 2019-05-27 18:26 | NUR ---
PT RESTING IN BED WITH EYES CLOSED SINCE BEING MEDICATED WITH NORCO FOR ABD PAIN.
[2019-05-27 20:00] VITALS: BP 124/78
--- NOTE | 2019-05-27 20:00 | NUR ---
Patient lying in bed, states she is having pain in her stomach, all over. States she needs a pain pill when I bring in her night time meds. Patient denies any cough or shortness of breath. Patient on room air. No distress noted. Patient left with call ligth in reach.
--- NOTE | 2019-05-27 21:50 | NUR ---
Patient requested a pain pill for her ab pain, also requested zofran so she didnt get nauseated when taking her pills. Patient also stated she had to take her pill with something soft like sherbet. Will monitor and reassess.
--- NOTE | 2019-05-27 22:00 | NUR ---
Patient refused to have bed changed or set up for a bath.
[2019-05-28] VITALS: BP 158/52
--- NOTE | 2019-05-28 01:30 | NUR ---
Patient awake and in pain, told me I needed to take her to emergency! I explained to her that I could call the doctor and see what he could give her. She told me to call another doctor. I spoke with dr. flores, and new order recieved for one time dose of morphine, 1mg.
--- NOTE | 2019-05-28 01:47 | NUR ---
MORPHINE GIVEN FOR AB PAIN, PATIENT RATES 10/10.
--- NOTE | 2019-05-28 02:29 | NUR ---
24 HR chart check completed.
[2019-05-28 04:00] VITALS: BP 137/76
--- NOTE | 2019-05-28 05:50 | NUR ---
Patient requested that I contact the again for another dose of morphine, she states she is having severe ab pain. rates 12/25. Called Dr. Silva, new order received for 1mg morphine.
--- NOTE | 2019-05-28 05:51 | NUR ---
Patient stated that the morphine had little effect on her pain.
--- NOTE | 2019-05-28 06:00 | NUR ---
Morphine given to patient for ab pain. Will reassess. Patient refused insulin coverage for a blood sugar of 258.
[2019-05-28 06:20] LABS: BASO % 0.4 % (0.0-1.0); EOS # 0.4 10*3/uL (0.0-0.4); EOS % 7.8 % (1.0-4.0); HEMATOCRIT 32.8 % (37.0-47.0); HEMOGLOBIN 10.1 g/dl (12.0-16.0); LYMPH # 0.2 10*3/uL (1.3-4.4); LYMPH % 4.9 % (27.0-41.0); MEAN CELL VOLUME 78.7 fl (81.0-99.0); MEAN CORPUSCULAR HGB 24.2 pg (27.0-31.0); MEAN CORPUSCULAR HGB CONC 30.8 g/dl (33.0-37.0); MEAN PLATELET VOLUME 10.5 fl (9.6-12.3); MONO # 0.3 10*3/uL (0.1-1.0); MONO % 6.1 % (3.0-9.0); NEUT # 3.6 10*3/uL (2.3-7.9); NEUT % 80.1 % (47.0-73.0); PLATELET COUNT AUTOMATED 149 10*3/uL (130-400); RED BLOOD COUNT 4.17 10*6/uL (4.10-5.10); RED CELL DISTRI WIDTH 17.7 % (0-14.5); WHITE BLOOD COUNT 4.5 10*3/uL (4.8-10.8)
[2019-05-28 06:51] LABS: CHLORIDE 106 mmol/L (98-107); POTASSIUM 4.1 mmol/L (3.5-5.1); SODIUM 139 mmol/L (136-145)
[2019-05-28 06:59] LABS: BUN 15 mg/dl (7-24); CREATININE 0.96 mg/dL (0.55-1.02); PHOSPHOROUS 2.5 mg/dL (2.5-4.9)
--- NOTE | 2019-05-28 07:15 | NUR ---
TO XRAY FOR 2VIEW, PT VERY UNHAPPY THAT SHE HAS TO GET OOB, RESP EASY, LUNGS DIMINISHED
[2019-05-28 08:00] VITALS: BP 146/72
--- NOTE | 2019-05-28 09:30 | NUR ---
MORPHINE AT 0854 HAS NOT BEEN EFFECTIVE YET, BUT PT IS SLEEPING QUIETLY
--- NOTE | 2019-05-28 09:50 | NUR ---
TO XRVIOLETTE FOR KUB
--- NOTE | 2019-05-28 09:54 | NUR ---
UP TO RECLINER WITH 2 MAX ASSIST
--- NOTE | 2019-05-28 10:05 | NUR ---
RETURNED FROM XRAY, PT STATES ABD PAIN IS "MAYBE ALITTLE BETTER"
--- NOTE | 2019-05-28 10:30 | NUR ---
RESIDENT AWARE OF KUB RESULTS
[2019-05-28 12:00] VITALS: BP 127/64
--- NOTE | 2019-05-28 12:22 | NUR ---
CT BARIUM PREP STARTED
--- NOTE | 2019-05-28 15:53 | NUR ---
ICU RESIDENT SPOKE WITH DR SHEFFIELD CONCERNING CT RESULTS
[2019-05-28 16:00] VITALS: BP 149/76
--- NOTE | 2019-05-28 18:11 | NUR ---
ADDITIONAL MORPHINE HAS BEEN EFFECTIVE PT CONTINUES TO REFUSE INSULIN COVERAGE AND ASC SWAB AWAITING CALL BACK FROM E' FOR BED
[2019-05-28 18:18] VITALS: BP 154/62; BP 182/110
--- NOTE | 2019-05-28 18:59 | NUR ---
DR MOORE UPDATED THAT PT IS YELLING AND SCREAMING FOR MORE PAIN MED
--- NOTE | 2019-05-28 19:25 | NUR ---
PT REPORTS OF PAIN TO ABDOMEN. MEDICATED PER ORDER WITH DILAUDID.
--- NOTE | 2019-05-28 20:00 | NUR ---
24 HR chart check completed. PT MEDICATED FOR PAIN FOR REPRTED ABDOMINAL PAIN. PT RESTING ON CART WITH EASY RESPIRATIONS. PT PROVIDED ICE PACK FOR HEAD PER REQUEST. PT RESTING QUIETLY. SLIGHT DECREASE IN PAIN REPORTED. NO RESPIRATORY DISTRESS. RN TO CONTINUE TO MONITOR. AWAITING BED ASSIGNMENT FOR TRANSFER TO [facility]. PT AWARE OF TRANSFER
--- NOTE | 2019-05-28 21:26 | NUR ---
PT TRANSPORTED TO [facility] VIA LIFE [facility]. STABLE UPON DEPARTURE.
== END 2019-05-28 21:26 | disposition short-term general hospital (02) | DRG 720 ==
LOC: ED 05:52 → 5E 07:59 → EDHOLD 07:59 → 5E 08:22 → ICCU 05-26 15:14
PROVIDERS: Emergency Medicine Emergency Medical Services; Internal Medicine; Internal Medicine Critical Care Medicine; Registered Nurse; ADMIT Emergency Medicine
DX: A41.9 Sepsis, unspecified organism (principal); C55 Malignant neoplasm of uterus, part unspecified; L73.2 Hidradenitis suppurativa; M79.7 Fibromyalgia; D83.9 Common variable immunodeficiency, unspecified; G35 Multiple sclerosis; E03.9 Hypothyroidism, unspecified; K42.9 Umbilical hernia without obstruction or gangrene; K21.9 Gastro-esophageal reflux disease without esophagitis; E44.0 Moderate protein-calorie malnutrition; E87.1 Hypo-osmolality and hyponatremia; Y95 Nosocomial condition; J11.08 Influenza due to unidentified influenza virus with specified pneumonia; J15.6 Pneumonia due to other Gram-negative bacteria; E11.65 Type 2 diabetes mellitus with hyperglycemia; I10 Essential (primary) hypertension; E83.39 Other disorders of phosphorus metabolism; K80.20 Calculus of gallbladder without cholecystitis without obstruction; R09.89 Other specified symptoms and signs involving the circulatory and respiratory systems; J44.1 Chronic obstructive pulmonary disease with (acute) exacerbation; J44.0 Chronic obstructive pulmonary disease with (acute) lower respiratory infection; J45.901 Unspecified asthma with (acute) exacerbation; R04.2 Hemoptysis; E78.5 Hyperlipidemia, unspecified; E66.01 Morbid (severe) obesity due to excess calories; R91.1 Solitary pulmonary nodule; Z68.42 Body mass index [BMI] 45.0-49.9, adult; Z88.6 Allergy status to analgesic agent; Z88.1 Allergy status to other antibiotic agents; Z88.8 Allergy status to other drugs, medicaments and biological substances; Z79.4 Long term (current) use of insulin; Z79.899 Other long term (current) drug therapy; Z82.49 Family history of ischemic heart disease and other diseases of the circulatory system; Z83.3 Family history of diabetes mellitus; Z90.710 Acquired absence of both cervix and uterus

== ENCOUNTER 2019-09-15 03:18 | Inpatient (IN) | payer OTHER ==
[~2019-09-15] VITALS: Ht 167.6 cm; Wt 120.0 kg
[2019-09-15] VITALS (16 sets, daily range): BP systolic 78–106; BP diastolic 46–68
[~2019-09-15 03:18] MED LIST changes: +LANTUS SOL100 UNIT/1 SQ; -LEVOTHYROXINE0.1 MG PO; +LEVOXYL100 MCG PO; +LORATADINE-D 11 EACH PO; +MUPIROCIN15 GM T; +OMEPRAZOLE40 MG PO; -PRILOSEC20 M1 PO; +SYMJEPI0.3 MG/0.3 IJ
[2019-09-15 04:09] LABS: BASO % 0.4 % (0.0-1.0); EOS # 0.1 10*3/uL (0.0-0.4); EOS % 0.5 % (1.0-4.0); HEMATOCRIT 43.8 % (37.0-47.0); MEAN CELL VOLUME 77.5 fl (81.0-99.0); MEAN CORPUSCULAR HGB 24.1 pg (27.0-31.0); MEAN CORPUSCULAR HGB CONC 31.1 g/dl (33.0-37.0); MEAN PLATELET VOLUME 10.2 fl (9.6-12.3); MONO # 0.8 10*3/uL (0.1-1.0); MONO % 8.2 % (3.0-9.0); NEUT # 7.3 10*3/uL (2.3-7.9); NEUT % 79.4 % (47.0-73.0); PLATELET COUNT AUTOMATED 328 10*3/uL (130-400); RED BLOOD COUNT 5.65 10*6/uL (4.10-5.10); RED CELL DISTRI WIDTH 16.5 % (0-14.5); WHITE BLOOD COUNT 9.2 10*3/uL (4.8-10.8)
[2019-09-15 04:28] LABS: ALBUMIN 3.3 gm/dl (3.1-4.5); ALKALINE PHOSPHATASE 117 U/L (45-117); BUN 35 mg/dl (7-24); CHLORIDE 99 mmol/L (98-107); CREATININE 1.39 mg/dL (0.55-1.02); POTASSIUM 3.7 mmol/L (3.5-5.1); SGOT/AST 17 IU/L (3-35); SGPT/ALT 21 U/L (12-78); SODIUM 138 mmol/L (136-145); TOTAL PROTEIN 6.8 gm/dL (6.4-8.2)
[2019-09-15 04:29] LABS: TROPONIN I < 0.015 ng/ml (<0.045)
[2019-09-15] MEDS ORDERED: POTASSIUM CHLO20 ME4 PO (09:15)
[2019-09-15] MEDS ORDERED: MAGNESIUM OXID400 MG PO (09:16)
[2019-09-15] MEDS ORDERED: ALBUTEROL S5 MG/1 ML INH (09:17)
[2019-09-15] MEDS ORDERED: GOOD NEIGHBOR500 M2 PO (09:19)
[2019-09-15] MEDS ORDERED: MULTIPLE VITAM1 EACH PO (09:20)
[2019-09-15] MEDS ORDERED: ZOFRAN4 MG PO (09:22)
[2019-09-15] MEDS ORDERED: MECLIZINE HCL25 M2 PO (09:24)
[2019-09-15] MEDS ORDERED: ENTRESTO 24 MG1 EACH PO (09:27)
[2019-09-15] MEDS ORDERED: TOPROL XL25 MG PO (09:28)
[2019-09-15] MEDS ORDERED: BUMETANIDE2 MG PO (09:29)
[2019-09-15] MEDS ORDERED: CIPROFLOXACIN H10 ML OPH (09:30)
[2019-09-15] MEDS ORDERED: BENADRYL ALLERG25 M5 PO (09:35)
[2019-09-15] MEDS ORDERED: FLUONAZOLE150 MG PO (09:37)
[2019-09-15] MEDS ORDERED: GAMUNEX-C1 GM/10 ML IV (09:39)
[2019-09-15] MEDS ORDERED: DOXYCYCLINE100 M3 PO (09:41)
[2019-09-16 00:05] VITALS: BP 102/58
[2019-09-16 04:00] VITALS: BP 102/58
[2019-09-16 06:18] LABS: BASO % 0.3 % (0.0-1.0); EOS # 0.1 10*3/uL (0.0-0.4); EOS % 1.3 % (1.0-4.0); HEMATOCRIT 39.6 % (37.0-47.0); LYMPH # 0.9 10*3/uL (1.3-4.4); LYMPH % 14.4 % (27.0-41.0); MEAN CORPUSCULAR HGB 24.4 pg (27.0-31.0); MEAN CORPUSCULAR HGB CONC 30.8 g/dl (33.0-37.0); MONO # 0.6 10*3/uL (0.1-1.0); MONO % 9.9 % (3.0-9.0); NEUT # 4.5 10*3/uL (2.3-7.9); NEUT % 73.5 % (47.0-73.0); PLATELET COUNT AUTOMATED 251 10*3/uL (130-400); RED BLOOD COUNT 5.01 10*6/uL (4.10-5.10); RED CELL DISTRI WIDTH 16.5 % (0-14.5); WHITE BLOOD COUNT 6.2 10*3/uL (4.8-10.8)
[2019-09-16 06:23] LABS: ALBUMIN 3.2 gm/dl (3.1-4.5); CHLORIDE 104 mmol/L (98-107); CREATININE 0.83 mg/dL (0.55-1.02); POTASSIUM 3.5 mmol/L (3.5-5.1); SGOT/AST 12 IU/L (3-35); SGPT/ALT 19 U/L (12-78); SODIUM 141 mmol/L (136-145)
[2019-09-16 06:33] LABS: ALKALINE PHOSPHATASE 93 U/L (45-117); BUN 24 mg/dl (7-24); THYROID STIM HORMONE (HS) 0.926 uIU/ml (0.358-4.75); TOTAL PROTEIN 6.3 gm/dL (6.4-8.2)
[2019-09-16 07:07] LABS: INTERNATIONAL NORM RATIO 1.2 (2.0-3.5)
[2019-09-16 08:00] VITALS: BP 115/55
[2019-09-16 12:00] VITALS: BP 112/65
[2019-09-16 16:00] VITALS: BP 107/69
[2019-09-16 20:00] VITALS: BP 102/57
[2019-09-17] VITALS: BP 107/93
[2019-09-17 06:13] LABS: BUN 20 mg/dl (7-24); CHLORIDE 103 mmol/L (98-107); CREATININE 0.85 mg/dL (0.55-1.02); POTASSIUM 3.7 mmol/L (3.5-5.1); SODIUM 139 mmol/L (136-145)
[2019-09-17 08:00] VITALS: BP 90/48
[2019-09-17 11:06] LABS: HEMATOCRIT 41.2 % (37.0-47.0)
[2019-09-17 12:00] VITALS: BP 105/65
[2019-09-17] MEDS ORDERED: XARE20MG PO (13:31)
[2019-09-17] MEDS ORDERED: BUMETANIDE0.5 MG PO (14:02)
== END 2019-09-17 14:30 | disposition home or self-care (01) | DRG 469 ==
LOC: ED 03:18 → ICCU 06:08 → EDHOLD 06:08 → 5E 06:08 → ICCU 07:32 → 5E 09-16 14:57
PROVIDERS: Emergency Medicine; Internal Medicine; Student in an Organized Health Care Education/Training Program; ADMIT Internal Medicine
DX: N17.0 Acute kidney failure with tubular necrosis (principal); I48.0 Paroxysmal atrial fibrillation; C55 Malignant neoplasm of uterus, part unspecified; J45.909 Unspecified asthma, uncomplicated; G35 Multiple sclerosis; D83.9 Common variable immunodeficiency, unspecified; I10 Essential (primary) hypertension; E03.9 Hypothyroidism, unspecified; L71.9 Rosacea, unspecified; M79.7 Fibromyalgia; M41.9 Scoliosis, unspecified; K21.9 Gastro-esophageal reflux disease without esophagitis; E11.65 Type 2 diabetes mellitus with hyperglycemia; K76.0 Fatty (change of) liver, not elsewhere classified; M50.20 Other cervical disc displacement, unspecified cervical region; I11.0 Hypertensive heart disease with heart failure; I50.32 Chronic diastolic (congestive) heart failure; I42.9 Cardiomyopathy, unspecified; E66.9 Obesity, unspecified; K42.9 Umbilical hernia without obstruction or gangrene; E83.41 Hypermagnesemia; Z68.41 Body mass index [BMI] 40.0-44.9, adult; Z79.4 Long term (current) use of insulin; Z88.6 Allergy status to analgesic agent; Z88.8 Allergy status to other drugs, medicaments and biological substances; Z88.1 Allergy status to other antibiotic agents; Z91.018 Allergy to other foods; Z83.3 Family history of diabetes mellitus; Z82.49 Family history of ischemic heart disease and other diseases of the circulatory system; Z79.899 Other long term (current) drug therapy; Z92.3 Personal history of irradiation; Z87.01 Personal history of pneumonia (recurrent)

== ENCOUNTER 2019-12-31 11:53 | Inpatient (IN) | payer OTHER ==
[~2019-12-31] VITALS: Ht 167.6 cm; Wt 104.3 kg
[~2019-12-31 11:53] MED LIST changes: +ALBUTEROL S5 MG/1 ML INH; +BENADRYL ALLERG25 M5 PO; +BUMETANIDE0.5 MG PO; +BUMETANIDE2 MG PO; +CIPROFLOXACIN H10 ML OPH; +ENTRESTO 24 MG1 EACH PO; +FLUONAZOLE150 MG PO; +GAMUNEX-C1 GM/10 ML IV; +GOOD NEIGHBOR500 M2 PO; +MECLIZINE HCL25 M2 PO; +MULTIPLE VITAM1 EACH PO; +POTASSIUM CHLO20 ME4 PO; +TOPROL XL25 MG PO; +XARE20MG PO; +ZOFRAN4 MG PO
[2019-12-31 12:10] VITALS: BP 138/94
--- NOTE | 2019-12-31 12:15 | NUR ---
WOUNDS: PT REPORTS RECENT HEART CATH PROCEDURE AND SURGICAL WOUNDS AT RIGHT WRIST AND LEFT INGUINAL. ALTHOUGH THESE SITES APPEAR HEALED, PT INSISTS THEY ARE NOT SO PHOTOS WILL BE TAKEN.
--- NOTE | 2019-12-31 12:20 | NUR ---
PT REFUSES XRAY OF LEG AT THIS TIME UNTIL SOME TYPE OF LOTION CAN BE APPLIED. XRAY STATES THEY WOILL RETURN.
--- NOTE | 2019-12-31 12:35 | NUR ---
PT ANGERED THAT STAFF ARE NOT KEEPING HER DOOR SHUT. I DID CLOSE DOORS AND APOLOGIZE QUIETLY.
--- NOTE | 2019-12-31 12:43 | NUR ---
PT REFUSES BLOOD DRAW.
--- NOTE | 2019-12-31 12:46 | NUR ---
PT REFUSES EKG.
--- NOTE | 2019-12-31 12:58 | NUR ---
PT DOES NOW ALLOW PERFORMANCE F THE EKG, LABS AND XRAY. PT APPEARS ANGERED.
[2019-12-31 13:09] LABS: BASO % 0.3 % (0.0-1.0); EOS # 0.2 10*3/uL (0.0-0.4); EOS % 1.5 % (1.0-4.0); HEMATOCRIT 38.2 % (37.0-47.0); LYMPH % 10.6 % (27.0-41.0); MEAN CELL VOLUME 82.2 fl (81.0-99.0); MEAN CORPUSCULAR HGB 25.8 pg (27.0-31.0); MEAN CORPUSCULAR HGB CONC 31.4 g/dl (33.0-37.0); MEAN PLATELET VOLUME 9.8 fl (9.6-12.3); MONO # 0.7 10*3/uL (0.1-1.0); MONO % 6.7 % (3.0-9.0); NEUT # 7.8 10*3/uL (2.3-7.9); NEUT % 80.5 % (47.0-73.0); PLATELET COUNT AUTOMATED 353 10*3/uL (130-400); RED BLOOD COUNT 4.65 10*6/uL (4.10-5.10); RED CELL DISTRI WIDTH 16.3 % (0-14.5); WHITE BLOOD COUNT 9.7 10*3/uL (4.8-10.8)
[2019-12-31 13:22] LABS: ACT PARTIAL THROMBO TIME 32.5 SECONDS (20.0-32.1); INTERNATIONAL NORM RATIO 1.1 (2.0-3.5)
[2019-12-31 13:24] LABS: ALBUMIN 3.8 gm/dl (3.1-4.5); ALKALINE PHOSPHATASE 47 U/L (45-117); BUN 35 mg/dl (7-24); CHLORIDE 108 mmol/L (98-107); CREATININE 1.02 mg/dL (0.55-1.02); LIPASE 86 U/L (73-393); POTASSIUM 4.2 mmol/L (3.5-5.1); SGOT/AST 14 IU/L (3-35); SGPT/ALT 20 U/L (12-78); SODIUM 138 mmol/L (136-145); TOTAL PROTEIN 7.1 gm/dL (6.4-8.2)
[2019-12-31 13:31] LABS: TROPONIN I < 0.015 ng/ml (<0.045)
--- NOTE | 2019-12-31 14:15 | NUR ---
PT REQUESTS MILK TO TAKE HER HOME SUZY NYE WITH HER AND STATES "EVERYONE HERE ESPECIALLY YOU ARE DOING A TERRIBLE JOB". I DID OFFER PT THE OPPORTU KELVIN TO FILE A COMPLAINT ABOUT ME THE WINDOW CLEANER AND DID PROMISE TO TRY TO DO BETTER FOR HER. MILK PROVIDED. OPPORTUNITY TO TOILET WITGH THE HELP OF THE AIDE PROVIDED. PT REMAINS DISPLEASED.
--- NOTE | 2019-12-31 15:00 | NUR ---
NURSE REPORT TO LUCIANO JANG, FOR CONTINUATION OF CARE. ANKLE AND FOOT XRAY'S HAVE YET TO RETURN, ALL OTHER TESTS ARE BACK. CALLBELL IN REACH. NO VOCIED COMPLAINTS. SOME CRACKERS AND PEANUT BUTTER OFFERRED AT PT REQUEST.
--- NOTE | 2019-12-31 15:55 | NUR ---
RESIDENT MD IN TO DO OCL ON RT FOOT/ANKLE---LAINE THORPE RN
[2019-12-31 16:00] VITALS: BP 116/77
--- NOTE | 2019-12-31 16:00 | NUR ---
PT BEING ADMITTED.OCL NOTED TO RT FOOT.SHE DENIES PAIN AND DID NOT WANT THE ORDERED NORCO.MONITOR ST 110---LAINE THORPE RN
--- NOTE | 2019-12-31 16:15 | NUR ---
A 59, admitted to , under the services of KIESHA Storm DO with a diagnosis of RT FOOT FRACTURE, SYNCOPE. Chief complaint is FALL @ HOME, FELL & FRACTURED RIGHT FOOT. Patient arrived via bed from ER. Monitor applied. Initial assessment completed. Vital signs taken and recorded. KIESHA STORM DO notified of admission to the unit. Orders received. See assessment for past medical history, medications and allergies. Patient and/or family oriented to unit. [facility] visitation policy reviewed. Clothing/patient valuable form completed. MARZENA ROJAS
[2019-12-31] MEDS ORDERED: LOSARTAN POTASS25 M1 PO (16:39)
[2019-12-31 16:42] VITALS: BP 125/82
--- NOTE | 2019-12-31 16:47 | NUR ---
MED REC UPDATED PER POLICY.
--- NOTE | 2019-12-31 18:06 | NUR ---
NOTIFIED 'S ANSWERING SERVICE OF NEW CONSULT. ALSO NOTIFIED PODIATRY.
--- NOTE | 2019-12-31 18:49 | NUR ---
BLADDER SCAN DONE AND RESULTED 250CC. PATIENT URINATED 150CC CLOUDY STRAW URINE IN BSC FOLLOWING SCAN.
[2019-12-31 19:07] LABS: BILIRUBIN Negative (Negative); BLOOD 3+ (Negative); CLARITY Clear (Clear); COLOR Yellow (Yellow); GLUCOSE Negative (Negative); KETONE Negative (Negative); LEUKO ESTERASE 1+ (Negative); NITRITE Negative (Negative); SPECIFIC GRAVITY >= 1.030 (1.001-1.030)
[2019-12-31 20:00] VITALS: BP 122/86
--- NOTE | 2019-12-31 20:07 | NUR ---
PATIENT CALLING OUT IN PAIN. ENCOURAGED TO ELEVATE RT LEG, PILLOWS AND ICE PACKS PROVIDED. NORCO GIVEN PER REQUEST.
[2019-12-31 20:20] LABS: RBC 41-50 rbc/hpf (0-2); WBC 16-20 wbc/hpf (0-5)
[2019-12-31 20:21] LABS: BACTERIA 1+
--- NOTE | 2019-12-31 20:28 | NUR ---
PATIENT COMPLAINS THAT HER HOME DOSE OF NORCO IS 10 MG AND THAT THIS 5 MG NORCO IS NOT GOING TO HLP HER PAIN. DR CAMPOS NOTIFIED AND STATES OK TO GIVE PRN DOSE OF MORPHINE AT THIS TIME.
--- NOTE | 2019-12-31 21:16 | NUR ---
DR CAMPOS NOTIFIED OF PATIENT SCREAMING TO REMOVE SOFT CAST, AND THAT SHE REMOVED GIGI WRAPS HERSELF STATING THAT IT IS TOO TIGHT. PATIENTS LEG IS WARM, GOOD PULSES, ABLE TO MOVE TOES. DR CAMPOS STATES HE WILL BE UP TO SEE PT.
--- NOTE | 2019-12-31 21:20 | NUR ---
PATIENT STATES PAIN RELIEF
--- NOTE | 2019-12-31 21:38 | NUR ---
PODIATRY RESIDENT CALLED AND NOTIFIED OF PATIENT REMOVING GIGI WRAPS FROM SOFT CAST AND OF PATIENT SCREAMING TO REMOVE THE REST AND THAT SHE WILL REMOVE IT HERSELF. STATES OK TO REMOVE, KEEP NWB AND PLACE CAM BOOT IF POSSIBLE
--- NOTE | 2019-12-31 22:05 | NUR ---
CAM BOOT AT BEDSIDE. PATIENT VERBALIZES UNDERSTANDING TO MAINTAIN NWB.
[2020-01-01] VITALS: BP 101/47; BP 120/56
--- NOTE | 2020-01-01 01:03 | NUR ---
MORPHINE PROVIDED PER REQUEST FOR C/O 10/25 PAIN
--- NOTE | 2020-01-01 02:00 | NUR ---
MORPHINE WORKING; PATIENT ABLE TO REST
[2020-01-01 06:46] LABS: BASO % 0.2 % (0.0-1.0); EOS # 0.1 10*3/uL (0.0-0.4); EOS % 1.4 % (1.0-4.0); HEMATOCRIT 36.1 % (37.0-47.0); LYMPH # 1.2 10*3/uL (1.3-4.4); LYMPH % 12.6 % (27.0-41.0); MEAN CORPUSCULAR HGB 25.8 pg (27.0-31.0); MEAN CORPUSCULAR HGB CONC 30.7 g/dl (33.0-37.0); MEAN PLATELET VOLUME 10.3 fl (9.6-12.3); MONO # 0.8 10*3/uL (0.1-1.0); MONO % 8.8 % (3.0-9.0); NEUT # 7.1 10*3/uL (2.3-7.9); NEUT % 76.6 % (47.0-73.0); PLATELET COUNT AUTOMATED 355 10*3/uL (130-400); RED CELL DISTRI WIDTH 16.5 % (0-14.5); WHITE BLOOD COUNT 9.2 10*3/uL (4.8-10.8)
[2020-01-01 06:54] LABS: ACT PARTIAL THROMBO TIME 36.3 SECONDS (20.0-32.1); INTERNATIONAL NORM RATIO 1.1 (2.0-3.5)
[2020-01-01 07:08] LABS: ALBUMIN 3.5 gm/dl (3.1-4.5); BUN 30 mg/dl (7-24); CHLORIDE 106 mmol/L (98-107); CHOLESTEROL 133 mg/dL (<200); CREATININE 0.96 mg/dL (0.55-1.02); HDL CHOLESTEROL 49 mg/dl (40-60); LDL CHOLESTEROL 37 mg/dL (9-159); POTASSIUM 4.2 mmol/L (3.5-5.1); SGOT/AST 12 IU/L (3-35); SGPT/ALT 17 U/L (12-78); SODIUM 139 mmol/L (136-145); TOTAL PROTEIN 6.8 gm/dL (6.4-8.2); TRIGLYCERIDES 233 mg/dl (<150); VLDL CHOLESTEROL 47 mg/dL (6-40)
[2020-01-01 07:14] LABS: ALKALINE PHOSPHATASE 47 U/L (45-117); FREE T4 1.18 ng/dl (0.76-1.46)
[2020-01-01 07:33] LABS: VITAMIN D, 25-HYDROXY 37.9 ng/mL (30-100)
--- NOTE | 2020-01-01 09:38 | NUR ---
NORCO GIVEN FOR C/O GENERALIZED DISCOMFORT. WILL MONITOR.
--- NOTE | 2020-01-01 09:46 | NUR ---
PHYSICAL THERAPY PT eval and screen received will follow thank you Brenna George PT
--- NOTE | 2020-01-01 10:41 | NUR ---
EDWARD CROSS, NOT FULLY EFFECTIVE. WILL MONITOR.
--- NOTE | 2020-01-01 11:25 | NUR ---
Pipe Stem Repairer in to talk to patient. Patient states lives at HOME with . There are 3 steps in the home. Physician: Benita LEO Pharmacy: [facility] [place] health services: NONE Patient's level of ADLs: MODERATE ASSIST Patient has working utilities: YES DME: WALKER, POTTY CHAIR, HAS SCOOTER ORDERED Follow-up physician's appointment after d/c: WILL BE MADE BY HOSPITALIST NURSE DIRECTOR ON DISCHARGE Does patient want to access PORTAL?: NO Discharge plan PT LIVES AT HOME WITH HER . STATES SHE NEEDS SOME ASSISTANCE AT HOME. SHE HAS BEEN TRYING TO GET AID BUT THE ANGENCY KEEPS TELLING HER THERE ARE NONE AVAILABLE. WOULD LIKE [facility] ON DISCHARGE. WILL CONTINUE TO FOLLOW. STATES SHE WILL HAVE A RIDE HOME.. BRETT BARKER
--- NOTE | 2020-01-01 11:50 | NUR ---
PHYSICAL THERAPY Physical Therapy evaluation completed on 5th floor with full evaluation to follow. Recommend physical therapy per plan of care and SNF upon discharge. If declining SNF will require W/C w removable armres/elevating leg rest,drop arm bsc,possible hosptial bed/sliding board pending transfers,ambulance/stretch transport as pt has 4 steps into home and is NWB on RLE as well as full HH servies thank you. Thank you for this referral. Brenna George PT
--- NOTE | 2020-01-01 11:55 | NUR ---
Occupational Therapy evaluation completedon 5 with full eval to follow. Precautions include NWB RLE w/ com boot, weakness in BUEs, lifevest, urinary incontinency,high complexity level [id number], +3 sit to stand assist d/t poor NWB compliance and heavy cam boot and decreased strength to hold RLE up off floor. Recommend OT per POC and SNF. Patient concerned about covid and SNF with her immmune deficiency. If home recommend 24 hr supervision/assist,at least 20" w/c,drop arm bedside commode,ww,HH SN, OT,PT,CORPORATE TRAVEL COUNSELOR. Thank you for this referral. Ayanna Dacosta OTr/l
--- NOTE | 2020-01-01 11:56 | NUR ---
MORPHINE GIVEN FOR C/O GEN. DISCOMFORT. WILL MONITOR.
[2020-01-01 12:00] VITALS: BP 134/81
--- NOTE | 2020-01-01 13:00 | NUR ---
MORPHINE EFFECTIVE PER PT
--- NOTE | 2020-01-01 14:52 | NUR ---
NORCO GIVEN FOR C/O GENERLIZED DISCOMFORT. WILL MONITOR.
--- NOTE | 2020-01-01 15:10 | NUR ---
OIL ANALYST IN TO TALK TO PT ABOUT NOT BEING ABLE TO WORK WELL WITH PT AND THEY WERE RECOMENDING SNF. PT STATES SHE IS VERY RELUCTANT TO GO ANYWHERE DUE TO COVID AND SHE HAS AN AUTO IMMUNE DISEASE. STATES SHE MIGHT BE OK WITH GOING TO REHAB SUITES IF THEY HAD A BED AVAILABLE. STATES I MAY STILL CHANGE MY MIND. WILL CONTINUE TO FOLLOW.
[2020-01-01 16:00] VITALS: BP 95/76
--- NOTE | 2020-01-01 16:00 | NUR ---
NORCO HELPING, NOT FULLY EFFECTIVE. WILL MONITOR.
--- NOTE | 2020-01-01 18:02 | NUR ---
MORPHINE GIVEN FOR C/O GENERALIZED DISCOMFORT. WILL MONITOR.
[2020-01-01 20:00] VITALS: BP 103/68
--- NOTE | 2020-01-01 20:20 | NUR ---
BLOOD SUGAR 174. C/O RIGHT LEG/FOOT PAIN RATED AN 8/10. MEDICATED WITH NORCO & ALSO MEDICATED WITH DULCOLAX PER PT'S REQUEST. CALL LIGHT WITHIN REACH; BED ALARM ON.
[2020-01-02] VITALS: BP 122/71
--- NOTE | 2020-01-02 06:01 | NUR ---
MEDICATED WITH NORCO FOR C/O GENERALIZED PAIN RATED A 9/10.
--- NOTE | 2020-01-02 06:01 | NUR ---
IV started right forearm with #22 protective cath after 1 attempts. Site prepped with Chloroprep. Sterile dressing applied. Patient tolerated procedure well. IV infusing at cc/hr. JEWELL CHRISTY
--- NOTE | 2020-01-02 06:09 | NUR ---
MEDICATED WITH MS 2 MG SLOW IV PUSH FOR C/O PAIN RATED A 9/10.
--- NOTE | 2020-01-02 06:36 | NUR ---
BLOOD SUGAR 122; NO COVERAGE REQUIRED.
[2020-01-02 06:46] LABS: BASO % 0.5 % (0.0-1.0); EOS # 0.1 10*3/uL (0.0-0.4); EOS % 1.6 % (1.0-4.0); LYMPH % 13.6 % (27.0-41.0); MEAN CELL VOLUME 84.5 fl (81.0-99.0); MEAN CORPUSCULAR HGB 26.3 pg (27.0-31.0); MEAN CORPUSCULAR HGB CONC 31.1 g/dl (33.0-37.0); MEAN PLATELET VOLUME 9.5 fl (9.6-12.3); MONO # 0.6 10*3/uL (0.1-1.0); MONO % 8.4 % (3.0-9.0); NEUT # 5.7 10*3/uL (2.3-7.9); NEUT % 75.5 % (47.0-73.0); PLATELET COUNT AUTOMATED 321 10*3/uL (130-400); RED BLOOD COUNT 4.26 10*6/uL (4.10-5.10); RED CELL DISTRI WIDTH 16.5 % (0-14.5); WHITE BLOOD COUNT 7.5 10*3/uL (4.8-10.8)
[2020-01-02 07:05] LABS: ALBUMIN 3.6 gm/dl (3.1-4.5); BUN 27 mg/dl (7-24); CHLORIDE 104 mmol/L (98-107); CREATININE 0.92 mg/dL (0.55-1.02); POTASSIUM 3.8 mmol/L (3.5-5.1); SGOT/AST 11 IU/L (3-35); SODIUM 137 mmol/L (136-145)
[2020-01-02 07:07] LABS: ALKALINE PHOSPHATASE 50 U/L (45-117); SGPT/ALT 18 U/L (12-78); TOTAL PROTEIN 6.8 gm/dL (6.4-8.2)
[2020-01-02 08:00] VITALS: BP 128/65
--- NOTE | 2020-01-02 10:38 | NUR ---
NORCO GIVEN PER MAR FOR C/O GENERALIZED PAIN,10/25.
[2020-01-02 12:00] VITALS: BP 115/68
--- NOTE | 2020-01-02 14:52 | NUR ---
MORPHINE 2MG GIVEN FOR C/O PAIN, 10/25.
[2020-01-02 16:00] VITALS: BP 105/56
--- NOTE | 2020-01-02 18:40 | NUR ---
DISCUSSED PT ASSESSMENT WITH DR BARRY. PT SEEMS TO BE PARANOID AND UNTRUSTFUL OF FAMILY AT THIS TIME., PT DESCRIBED RECENT LOSS OF FATHER AND ". HOW EVERYTHING CHANGED". PT RAMBLING ABOUT TAPES RECORDED BY FATHER OF OTHER FAMILY "TALKING ABOUT HIM". PT AKNOWLEDGES THAT HE "DOESN'T EAT OUT OF FEAR OF BEING POISONED BY FAMILY MEMBERS". PT STATES HE DOES NOT LIVE WITH THEM BUT THEY STILL GET IN . HE CLAIMS THEY (FAMILY) BREAK INTOI HIS HOUSE AND STEAL FROM HIM AND THEN REGIFT HIS PERSONAL BELONGINGS BACK TO HIM A JOKE".PT STATES HE "DOESN'T TRUST ANYONE".PT DOES APPEAR HYPERVIGILANT BUT PLEASANT. EMOTIONAL SUPPORT PROIVIDED AND ENCOURAGED PT THAT THIS WAS A SAFE PLACE.
[2020-01-02 20:00] VITALS: BP 113/46
--- NOTE | 2020-01-02 20:04 | NUR ---
MEDICATED WITH MS 2 MG SLOW IV PUSH FOR C/O GENERALIZED DISCOMFORT RATED A 7 1/2 OUT OF 10. CALL LIGHT WITHIN PT'S REACH.
--- NOTE | 2020-01-02 21:00 | NUR ---
VOICES MS EFFECTIVE; NO C/O AT THIS TIME. WILL CONTINUE TO MONITOR. CALL LIGHT WITHIN REACH.
--- NOTE | 2020-01-02 22:00 | NUR ---
BLOOD SUGAR 220; COVERAGE GIVEN PER EMAR.
[2020-01-03] VITALS: BP 121/55
[2020-01-03 06:09] LABS: BASO % 0.1 % (0.0-1.0); EOS % 0.2 % (1.0-4.0); HEMATOCRIT 35.2 % (37.0-47.0); LYMPH # 0.9 10*3/uL (1.3-4.4); LYMPH % 9.6 % (27.0-41.0); MEAN CELL VOLUME 83.4 fl (81.0-99.0); MEAN CORPUSCULAR HGB 26.3 pg (27.0-31.0); MEAN CORPUSCULAR HGB CONC 31.5 g/dl (33.0-37.0); MONO # 0.8 10*3/uL (0.1-1.0); MONO % 7.9 % (3.0-9.0); NEUT # 7.8 10*3/uL (2.3-7.9); NEUT % 81.7 % (47.0-73.0); PLATELET COUNT AUTOMATED 329 10*3/uL (130-400); RED BLOOD COUNT 4.22 10*6/uL (4.10-5.10); RED CELL DISTRI WIDTH 16.3 % (0-14.5); WHITE BLOOD COUNT 9.5 10*3/uL (4.8-10.8)
[2020-01-03 06:28] LABS: BUN 23 mg/dl (7-24); CHLORIDE 106 mmol/L (98-107); CREATININE 0.79 mg/dL (0.55-1.02); POTASSIUM 4.1 mmol/L (3.5-5.1); SODIUM 139 mmol/L (136-145)
--- NOTE | 2020-01-03 06:30 | NUR ---
BLOOD SUGAR 139; NO COVERAGE REQUIRED.
[2020-01-03 08:00] VITALS: BP 110/80
--- NOTE | 2020-01-03 09:05 | NUR ---
NORCO 5/325 GIVEN PER PATINT REQUEST FOR LEG PAIN RATING AN 8/10.
--- NOTE | 2020-01-03 10:00 | NUR ---
NORCO EFFECTIVE PER PATIENT.
[2020-01-03 12:00] VITALS: BP 116/71
--- NOTE | 2020-01-03 15:30 | NUR ---
REPORT RECEIVED FROM OFFGOING NURSE,ASSUMED CARE OF PATIENT.
[2020-01-03 16:00] VITALS: BP 137/74
--- NOTE | 2020-01-03 16:45 | NUR ---
PATIENT C/O BILATERAL LE PAIN MEDICATED WITH NORCO ORDERED PRN, WHITE BOARD UPDATED.
--- NOTE | 2020-01-03 17:45 | NUR ---
PATIENT REPORTS GOOD RELIEF FROM NORCO GIVEN X 1 HOUR AGO.
[2020-01-03 20:00] VITALS: BP 109/58
--- NOTE | 2020-01-03 20:00 | NUR ---
Neurological: awake,alert,oriented Respiratory: diminished bilaterally Breath sounds: diminished Cough: none Cardiovascular: no problem Gastrointestinal: no problem Genito/Urinary: no problem Musculoskeketal: warm and dry, color pink STAR KELLOGG
--- NOTE | 2020-01-03 20:49 | NUR ---
C/O OF RT.FOOT PAIN. REPOSITIONED WITHOUT EFFECT. ADMINISERED PRN NORCO PER ORDER. PT ALSO WANTED TO SPEAK TO RESP. ABOUT BREATHING MEDS. NOTIFIED RESP.
--- NOTE | 2020-01-03 21:57 | NUR ---
NEW ORDER FOR ALBUTEROL TX PER DR MOORE. NO FURTHER C/O PAIN AT THIS TIME.
--- NOTE | 2020-01-03 23:33 | NUR ---
24 HR chart check completed.
[2020-01-04] VITALS: BP 138/71
--- NOTE | 2020-01-04 00:42 | NUR ---
C/O RT FOOT PAIN. 1:1, REPOSITIONED W/O EFFECT. MEDICATED PER PRN ORDER.
--- NOTE | 2020-01-04 01:30 | NUR ---
RESTING IN BED WITH EYES CLOSED. NO FURTHER C/O AT THIS TIME.
--- NOTE | 2020-01-04 02:52 | NUR ---
C/O FOOT PAIN. MEDICATED PER PRN ORDER. ALL OTHER INTERVENTION PT STATES ARE NOT EFFECTIVE.
--- NOTE | 2020-01-04 03:31 | NUR ---
RESTING QUIETLY. STATES FOOT FEELS A LITTLE BETTER.
[2020-01-04 04:00] VITALS: BP 130/74
--- NOTE | 2020-01-04 07:00 | NUR ---
ARRIVED ON SHIFT, REPORT RECEIVED FROM OFF GOING NURSE, ASSUMED CARE OF PATIENT.
--- NOTE | 2020-01-04 07:00 | NUR ---
ARRIVED ON SHIFT, REPORT RECEIVED FROM OFFGOING NURSE, ASSUMED CARE OF PATIENT.
--- NOTE | 2020-01-04 07:30 | NUR ---
INTRODUCED SELF TO PATIENT, BED IN LOW POSITION, WHEEL LOCKS ENGAGED, SIDE RAILS UP X 2 FOR TURNING AND REPOSITIONING, CALL LIGHT WITHIN REACH, PATIENT HAVING INCREASED PAIN, WILL MEDICATED, NO OTHER NEEDS VOICED, WHITE BOARD UPDATED. DANNY SALCIDO BSN,M RN
--- NOTE | 2020-01-04 07:48 | NUR ---
PATIENT C/O OF RIGHT LE PAIN RATES PAIN 8-9/10 DESCRIBES SHARP PRESSURE, CRAMPING, MEDICATED WITH NORCO ORDERED PRN, WHITE BOARD UPDATED.
[2020-01-04 08:00] VITALS: BP 120/78
--- NOTE | 2020-01-04 08:04 | NUR ---
Shift chart check completed.
--- NOTE | 2020-01-04 08:45 | NUR ---
PATIENT REPORTS NORCO MINIMALLY EFFECTIVE, WILL NOTIFY OHYSICIAN.
--- NOTE | 2020-01-04 08:51 | NUR ---
Patient insurance is out of network with [facility]. CM notified.
--- NOTE | 2020-01-04 09:43 | NUR ---
PHYSICAL THERAPY Patient declined treatment at 09:44 AM saying," she has too much pain"! Patient wants therapy to come back later in the morning. ROSANNA COFFEY SENIOR SQL SERVER DBA
--- NOTE | 2020-01-04 10:28 | NUR ---
PHYSICAL THERAPY Patient presented to therapy in supine with head of bed elevated and bed alarm on. Patient gives informed consent for treatment. Patient was identified by name and . Patient performed supine to sitting on EOB with SBA Patient declined use of CAM boot saying it was too heavy Patient sit EOB with SBA NWB R LE Wh Walker GAIT with Wh Walker and CGA for 20' x 1 Patient partially compliant at about 50% time with NWB on the L LE. Patient did not want ot wear CAM boot due to it being too heavy for her Patient transferred back to supine in bed with MIN A X 1 Bed alrm on and call light within reach 17 MINUTES TOTAL TREATMENT TIME 1:1 WITH THIS SCALE MECHANIC ROSANNA COFFEY PTA
--- NOTE | 2020-01-04 10:34 | NUR ---
OT NOTE Pt was seen this A.M. 1:1 for 20 mintue OT session. Upon arrival pt was supine in bed. Pt identified by name and and had complaints of 8.5/10 R foot/leg pain. Pt was able to self recall and verbalize her NWB status to RLE with 100% accuracy. Pt transferred supine to sit EOB with SBA and use of bed rail for UE support. While sitting EOB attempted to brendon R boot and pt refused stating "it is too heavy for me to lift. I have MS you know." Educated pt on importance and reasoning for boot and NWB to RLE, pt continued to refuse. Pt was requesting to complete toileting. Reported and strongly encouraged pt that since she was not wearing the boot it would be best to complete a standing pivot while maintaining NWB to RLE. Pt then refused the bedside commode and continued to the bathroom with CGA and use of w/w. Throughout pt was 100% NON- compliant with NWB to RLE and with wearing the boot. Pt transferred on/off standard commode with CGA and use of grab bar for UE support. Clothing management completed with CGA and toilet hygiene completed with supervision while seated. Functional mobility completed back to the EOB again while being non-compliant with NWB to RLE. Pt transferred back into bed sit to supine with SBA. There she was left with call light in hand, tray table in place, and bed alarm activated for safety. Before leaving the room this therapist again educated and encouraged pt to follow her NWB status to her RLE and to wear the boot while up. Continue with rec D/C plan to SNF. SHEILA Francis
--- NOTE | 2020-01-04 10:44 | NUR ---
CALL PLACED TO Eyad FOURNIER CNP, ADVISED OF PATIENT HAVING EPISODES OF TACHYCARDIA WITH HERAT RATES IN MID TO UPPER 120'S WITH ACTIVITY, ALSO REPORTING THAT PATIENT STATES "THE NORCO AND MORPHINE, ARE NOT HELPING MY PAIN." I WAS TOLD TO D/C MORPHINE AND SHE WILL BE UP TO SEE PATIENT.
[2020-01-04 12:00] VITALS: BP 106/77
--- NOTE | 2020-01-04 12:52 | NUR ---
MECHANICAL APPLICATIONS ENGINEER IN TO TALK WITH PT ABOUT DISCHARGE PLANS. EXPLAINED RS WAS OUT OF NETWORK WITH HER INSURANCE. DISCUSSED GOING HOME WITH [facility], PT STATES SHE DOES NOT THINK SHE COULD GO HOME AND NEEDS MORE [facility] HH. ASKED ABOUT REFERRAL TO [place]. REFERRAL WILL BE SENT.
--- NOTE | 2020-01-04 12:58 | NUR ---
[facility] stating they have never has a case of covid in their facility and they do have private rehab rooms available. Patient is now agreeable to [facility]. Contacted [facility] and Faxed referral. Requires precert.
[2020-01-04 16:00] VITALS: BP 110/68
[2020-01-04 20:00] VITALS: BP 111/57
[2020-01-05] VITALS: BP 131/72
--- NOTE | 2020-01-05 00:03 | NUR ---
PO NORCO GIVEN PER PRN ORDER FOR C/O PAIN IN R LEG RATED 8/10. WILL MONITOR. CALL LIGHT IN REACH.
--- NOTE | 2020-01-05 00:55 | NUR ---
EARLIER NORCO APPEARS EFFECTIVE. PT ASLEEP IN BED. RESPIRATIONS EASY. NO S/S OF DISTRESS NOTED. WILL MONITOR. CALL LIGHT IN REACH.
--- NOTE | 2020-01-05 02:15 | NUR ---
PT ASLEEP IN BED. NO S/S OF DISTRESS NOTED. WILL MONITOR. CALL LIGHT IN REACH.
--- NOTE | 2020-01-05 04:00 | NUR ---
PT ASLEEP IN BED. NO S/S OF DISTRESS NOTED. WILL MONITOR. CALL LIGHT IN REACH.
--- NOTE | 2020-01-05 06:06 | NUR ---
PO NORCO GIVEN FOR C/O RLE PAIN RATED 7/10. WILL MONITOR EFFECTIVENESS. CALL LIGHT IN REACH.
--- NOTE | 2020-01-05 07:00 | NUR ---
EARLIER MEDS APPEAR EFFECTIVE. PT RESTING IN BED WITH EYES CLOSED. WILL MONITOR. CALL LIGHT IN REACH.
--- NOTE | 2020-01-05 07:00 | NUR ---
ARRIVED ON SHIFT, REPORT RECEIVED FROM OFFGOING NURSE ASSUMED CARE OF PATIENT.
--- NOTE | 2020-01-05 07:24 | NUR ---
Patient has been accepted to [place]. All clinicals faxed, covid negative. Asked to start precert today 01/05/2020. Waiting for auth.
--- NOTE | 2020-01-05 07:36 | NUR ---
Shift chart check completed.
[2020-01-05 08:00] VITALS: BP 119/59; BP 130/76
--- NOTE | 2020-01-05 09:30 | NUR ---
Patient is now stating she does not want to go to snf she wants to go home. Notified [facility] to disregard referral.
--- NOTE | 2020-01-05 09:40 | NUR ---
OT NOTE Pt was seen this A.M. 1:1 for 15 minute OT session. Upon arrival pt was supine in bed. Pt identified by name and and had complaints of 8.5/10 R foot/leg pain. Pt transferred supine to sit EOB with SBA. Pt was able to self recall and verbalize her NWB to RLE precautions. Pt refused to wear her R cam boot stating "until they do an MRI of my leg I am not wearing that thing." Pt completed sit to stand from bed level with CGA and use of w/w for UE support. Challenged pt's static standing tolerance needed for increased I in self care tasks and functional transfers, pt was able to tolerate aprox 2 minutes at a time before sitting due to fatigue. Throughout all tasks pt was strongly encouraged and provided with verbal/visual/tactile prompts for maintaining NWB to RLE, pt non compliant. Pt transferred back into bed sit to supine with Caio for assist with RLE. There she was left with call light in hand, tray table in place, and bed alarm activated for safety. Continue with rec D/C plan to SNF. SHEILA Francis
--- NOTE | 2020-01-05 11:10 | NUR ---
PHYSICAL THERAPY TREATMENT TIME: IN 09:20 AM - OUT 09:42 AM 22 MINUTES TOTAL Patient presented to therapy in supine with head of bed elevated and bed alarm on. Patient reports pain in the R LE of 8.5/10. Patient gives informed consent for treatment. Patient was identified by name and on wristband. Patient says, "she is not going to wear the CAM boot until her pain level is under control". Patient says she has fibromyalgia and MS and she has a high pain level all over. Patient transfers supine to sititng on EOB with SBA. Patient sat on EOB SBA. Patient completed STS from EOB with SBA. Patient would NOT wear CAM boot. Patient was instructed in maintaining NWB on the R LE. Patient ambulated with Wh Walker and Close Supervision, while maintaining NWB of the L LE for 20' x 2. Patient NWB on the R LE was not complied with by patient. Patient STS from [facility]. Patient STS out of low chair with SBA. Patient transferred back to supine in bed with SBA. Patien was left in supine in bed with head of bed elevated, call light within reach and bed alarm activated. Patient was 1:1 with this DESIZING PAD OPERATOR for 22 minutes total. ROSANNA COFFEY DESIZING PAD OPERATOR
--- NOTE | 2020-01-05 11:40 | NUR ---
REFERRAL FOR [facility] GIVEN TO [facility] THIS AM AT MEETING. FAXED SCRIPS FOR ALEJA AND VANESSA CHAIR TO [facility], EDVIN MASTERSON ON [address] CALLED ER TO GET CRUTCHES AND THEY ARE SENDING UP A PAIR. LUCIANO DELGADO INFORMED OF ALL THIS.
--- NOTE | 2020-01-05 12:50 | NUR ---
CALLED TO ROOM BY PT LUCIANO DELGADO TO ANSWER QUESTIONS. PT ON PHONE WHEN I ENTERED ROOM, HANDS ME PHONE AND TELLS ME IT IS HER INSURANCE. PERSON ON OTHER LINE ASKING FOR PT SS NUMBER OR MEMBER ID TO LOOK UP ACCOUNT. GAVE PHONE BACK TO PT AND LEFT ROOM SO PT COULD PROVIDE INSURANCE WITH SS NUMBER. WENT BACK IN ROOM AND PT IS GIVING THEM HER ADDRESS. THEY PUT HER ON HOLD. PT ASKING WHAT ABOUT TEST THEY WERE GOING TO DO ON HER. STATES SOME DOCTORS WERE IN EARLIER AND SAID THEY WERE GOING TO DO MORE TEST. EXPLAINED I DID NOT KNOW WHAT THOSE WERE AND SHE STATES THATS THE PROBLEM NO ONE AROUND HERE KNOWS WHAT THEY ARE DOING. PT GOT FRUSTRATED ABOUT BEING ON HOLD AND HANGS UP AND SAYS I WILL JUST CALL MY TO COME AND GET ME AND YOU CAN LEAVE. INFOMRED DANNY WOLF TAKING CARE OF PT THAT SHE WAS CALLING HER .
--- NOTE | 2020-01-05 12:57 | NUR ---
PHYSICAL THERAPY Spoke with CM and nursing. Per OYSTER PREPARER and LOPEZ notes pt refusing to wear CAM boot RLE and has been up amb in room with FWW not maintaining NWB of RLE. Pt requesting to use crutches however due to cardiac/MS history and currently not using CAM boot and ambulating on RLE noncompliant for NWB status of RLE do not feel crutches approp/safe at this time as improved balance/safety w FWW Pt has FWW at home and uses this to ambulate with normally. Discussed w CM for assist with transport home for safety. Brenna George PT
--- NOTE | 2020-01-05 13:03 | NUR ---
PT HAD ORIGINALLY STATED SHE WANTED TO GO HOME AND NOT GO TO A FACILITY. THEN CHANGED HER MIND AND WANTED TO GO TO [facility]. WHEN [facility] WAS OUT OF NETWORK SHE STATED SHE WANTED TO GO HOME AGAIN WITH HOME HEALTH. THEN ON WEDNESDAY 01/03 STATES SHE WANTS TO GO TO A SNF AGAIN. STATES SHE WOULD LIKE TO GO TO [facility] EV[facility] IS COVID FREE AND COULD GIVE HER A PRIVATE ROOM. [facility] WAS ABLE TO ACCOMADATE HER WITH PRIVATE ROOM AND HAD NO COVID CASES SO REFERRAL WAS SENT THERE. TODAY PT STATES SHE DOES NOT WANT TO GO TO [facility] NOW AND WANTS TO GO HOME. OV REFERRAL SENT. WHEELCHAIR AND DROP ARM BSC SENT TO [facility]..
--- NOTE | 2020-01-05 14:10 | NUR ---
Discharge instructions reviewed with patient/family. Patient receptive and verbalizes understanding. Follow-up care arranged. Written instructions given to patient/family., TELMETRY REMOVED, IV REMOVED, TAKEN OUT VIA W/C BY PA, PROVIDED NON-EMERGENT NUMBER FOR ASSIST INTO HOME, WHEN SHE GETS HOME. DANNY SALCIDO
--- NOTE | 2020-01-06 07:38 | NUR ---
PHYSICAL THERAPY CO-SIGN I approve of the Physical Therapy notes written above. Brenna George PT
--- NOTE | 2020-01-06 16:11 | NUR ---
OCCUPATIONAL THERAPY CO-SIGN I approve of the Occupational Therapy notes written above. TRU WANG OTR/[employer]
== END 2020-01-05 14:25 | disposition home health service (06) | DRG 342 ==
LOC: ED 11:53 → 5E 15:17 → EDHOLD 15:17 → 5E 15:40
PROVIDERS: Emergency Medicine; Hospitalist; Student in an Organized Health Care Education/Training Program; ADMIT Internal Medicine; ATTEND Internal Medicine
PROC: 2W3SX1Z Immobilization of Right Foot using Splint (ICD-10-PCS; principal; 2019-12-31)
DX: S92.211A Displaced fracture of cuboid bone of right foot, initial encounter for closed fracture (principal); I48.0 Paroxysmal atrial fibrillation; D83.9 Common variable immunodeficiency, unspecified; G35 Multiple sclerosis; E03.9 Hypothyroidism, unspecified; M79.7 Fibromyalgia; N39.0 Urinary tract infection, site not specified; R79.82 Elevated C-reactive protein (CRP); R79.89 Other specified abnormal findings of blood chemistry; K21.9 Gastro-esophageal reflux disease without esophagitis; K80.80 Other cholelithiasis without obstruction; E66.01 Morbid (severe) obesity due to excess calories; I25.10 Atherosclerotic heart disease of native coronary artery without angina pectoris; E78.5 Hyperlipidemia, unspecified; M54.10 Radiculopathy, site unspecified; I50.22 Chronic systolic (congestive) heart failure; I11.0 Hypertensive heart disease with heart failure; J45.909 Unspecified asthma, uncomplicated; E11.65 Type 2 diabetes mellitus with hyperglycemia; I95.1 Orthostatic hypotension; I34.0 Nonrheumatic mitral (valve) insufficiency; Z20.828 Contact with and (suspected) exposure to other viral communicable diseases; I42.8 Other cardiomyopathies; E78.2 Mixed hyperlipidemia; C55 Malignant neoplasm of uterus, part unspecified; G89.4 Chronic pain syndrome; M48.00 Spinal stenosis, site unspecified; M54.30 Sciatica, unspecified side; W18.30XA Fall on same level, unspecified, initial encounter; Y93.89 Activity, other specified; Y92.098 Other place in other non-institutional residence as the place of occurrence of the external cause; Y99.8 Other external cause status; Z79.4 Long term (current) use of insulin; Z88.2 Allergy status to sulfonamides; Z88.1 Allergy status to other antibiotic agents; Z88.6 Allergy status to analgesic agent; Z91.018 Allergy to other foods; Z83.3 Family history of diabetes mellitus; Z82.49 Family history of ischemic heart disease and other diseases of the circulatory system; Z86.718 Personal history of other venous thrombosis and embolism; Z87.01 Personal history of pneumonia (recurrent); Z79.899 Other long term (current) drug therapy; Z79.01 Long term (current) use of anticoagulants; Z92.3 Personal history of irradiation

== ENCOUNTER 2020-01-27 20:08 | Emergency (ER) | payer OTHER ==
[~2020-01-27] VITALS: Ht 167.6 cm; Wt 97.5 kg
[~2020-01-27 20:08] MED LIST changes: +LOSARTAN POTASS25 M1 PO
[2020-01-27 21:08] LABS: BASO % 0.2 % (0.0-1.0); EOS # 0.1 10*3/uL (0.0-0.4); EOS % 0.6 % (1.0-4.0); HEMATOCRIT 35.9 % (37.0-47.0); LYMPH % 10.9 % (27.0-41.0); MEAN CELL VOLUME 85.9 fl (81.0-99.0); MEAN CORPUSCULAR HGB 26.6 pg (27.0-31.0); MEAN CORPUSCULAR HGB CONC 30.9 g/dl (33.0-37.0); MEAN PLATELET VOLUME 9.3 fl (9.6-12.3); MONO # 0.7 10*3/uL (0.1-1.0); NEUT % 79.7 % (47.0-73.0); PLATELET COUNT AUTOMATED 284 10*3/uL (130-400); RED BLOOD COUNT 4.18 10*6/uL (4.10-5.10); RED CELL DISTRI WIDTH 15.9 % (0-14.5); WHITE BLOOD COUNT 8.8 10*3/uL (4.8-10.8)
[2020-01-27 21:27] LABS: ALBUMIN 3.5 gm/dl (3.1-4.5); ALKALINE PHOSPHATASE 58 U/L (45-117); BUN 29 mg/dl (7-24); CHLORIDE 107 mmol/L (98-107); CREATININE 0.95 mg/dL (0.55-1.02); POTASSIUM 3.2 mmol/L (3.5-5.1); SGOT/AST 9 IU/L (3-35); SGPT/ALT 17 U/L (12-78); SODIUM 142 mmol/L (136-145); TOTAL PROTEIN 6.1 gm/dL (6.4-8.2)
== END 2020-01-28 00:40 | disposition home or self-care (01) ==
LOC: ED 20:08
PROVIDERS: Internal Medicine
DX: N93.8 Other specified abnormal uterine and vaginal bleeding (principal); C55 Malignant neoplasm of uterus, part unspecified; M54.5 Low back pain; D64.9 Anemia, unspecified; E11.9 Type 2 diabetes mellitus without complications; R53.1 Weakness; J45.909 Unspecified asthma, uncomplicated; I11.0 Hypertensive heart disease with heart failure; I50.9 Heart failure, unspecified; M19.90 Unspecified osteoarthritis, unspecified site; Z88.6 Allergy status to analgesic agent; Z88.2 Allergy status to sulfonamides; Z88.1 Allergy status to other antibiotic agents; Z91.018 Allergy to other foods; Z79.899 Other long term (current) drug therapy; Z79.4 Long term (current) use of insulin

== ENCOUNTER 2020-02-16 15:12 | Inpatient (IN) | payer OTHER ==
[~2020-02-16] VITALS: Ht 167.6 cm; Wt 103.1 kg
[2020-02-16 15:13] VITALS: BP 178/94
[2020-02-16 15:51] LABS: HEMATOCRIT 32.5 % (37.0-47.0); LYMPH # 0.3 10*3/uL (1.3-4.4); LYMPH % 6.8 % (27.0-41.0); MEAN CELL VOLUME 85.3 fl (81.0-99.0); MEAN CORPUSCULAR HGB CONC 30.5 g/dl (33.0-37.0); MEAN PLATELET VOLUME 9.1 fl (9.6-12.3); MONO # 0.3 10*3/uL (0.1-1.0); MONO % 7.1 % (3.0-9.0); NEUT # 3.3 10*3/uL (2.3-7.9); NEUT % 85.6 % (47.0-73.0); PLATELET COUNT AUTOMATED 192 10*3/uL (130-400); RED BLOOD COUNT 3.81 10*6/uL (4.10-5.10); RED CELL DISTRI WIDTH 15.7 % (0-14.5); WHITE BLOOD COUNT 3.8 10*3/uL (4.8-10.8)
[2020-02-16 16:05] LABS: ACT PARTIAL THROMBO TIME 33.1 SECONDS (20.0-32.1); INTERNATIONAL NORM RATIO 1.1 (2.0-3.5)
[2020-02-16 16:08] LABS: ALBUMIN 2.9 gm/dl (3.1-4.5); ALKALINE PHOSPHATASE 46 U/L (45-117); BUN 24 mg/dl (7-24); CHLORIDE 107 mmol/L (98-107); CPK 31 U/L (26-192); CREATININE 0.74 mg/dL (0.55-1.02); LDH 155 U/L (84-246); POTASSIUM 3.5 mmol/L (3.5-5.1); SGOT/AST 14 IU/L (3-35); SGPT/ALT 14 U/L (12-78); SODIUM 141 mmol/L (136-145); TOTAL PROTEIN 6.3 gm/dL (6.4-8.2)
[2020-02-16 16:10] LABS: TROPONIN I < 0.015 ng/ml (<0.045)
--- NOTE | 2020-02-16 16:18 | NUR ---
DR. PATEL NOTIFIED OF PT RECTAL TEMP 104.6.
[2020-02-16 16:38] LABS: BILIRUBIN Negative (Negative); BLOOD 1+ (Negative); CLARITY Clear (Clear); COLOR Yellow (Yellow); GLUCOSE Negative (Negative); KETONE Negative (Negative); LEUKO ESTERASE Negative (Negative); NITRITE Negative (Negative); UROBILINOGEN 0.2 E.U./dl (0.0-1.0)
[2020-02-16 17:03] LABS: RBC 21-30 rbc/hpf (0-2); WBC 0-2 wbc/hpf (0-5)
[2020-02-16 17:04] LABS: BACTERIA TRACE
[2020-02-16 19:20] VITALS: BP 122/40
[2020-02-16 19:36] VITALS: BP 122/40
--- NOTE | 2020-02-16 19:37 | NUR ---
PT MEDICATED FOR TEMP OF 104 RECTAL WITH PRN TYLENOL.
--- NOTE | 2020-02-16 20:30 | NUR ---
PT HELPED INTO INPATIENT HOSPITAL BED. GOWN AND LINENS CHANGED. PT C/O BILAT LEG PAIN. STATES THAT SHE HAS FIBROMYALGIA AND MS SO THE PAIN MEDICATION IS NOT HELPING.
--- NOTE | 2020-02-16 20:30 | NUR ---
PT FOUND IN BED WITH IV REMOVED. STATES THAT SHE PULLED IT OUT BY ACCIDENT.
[2020-02-16 21:48] VITALS: BP 108/45
[2020-02-17] VITALS (7 sets, daily range): BP systolic 98–144; BP diastolic 48–67
[2020-02-17 06:02] LABS: ALBUMIN 2.8 gm/dl (3.1-4.5); ALKALINE PHOSPHATASE 56 U/L (45-117); BUN 19 mg/dl (7-24); CHLORIDE 107 mmol/L (98-107); CREATININE 0.67 mg/dL (0.55-1.02); POTASSIUM 3.8 mmol/L (3.5-5.1); SGOT/AST 12 IU/L (3-35); SGPT/ALT 13 U/L (12-78); SODIUM 140 mmol/L (136-145); TOTAL PROTEIN 6.3 gm/dL (6.4-8.2)
[2020-02-17 06:13] LABS: HEMATOCRIT 32.3 % (37.0-47.0); MEAN CELL VOLUME 83.9 fl (81.0-99.0); MEAN CORPUSCULAR HGB 25.7 pg (27.0-31.0); MEAN CORPUSCULAR HGB CONC 30.7 g/dl (33.0-37.0); MEAN PLATELET VOLUME 9.7 fl (9.6-12.3); PLATELET COUNT AUTOMATED 215 10*3/uL (130-400); RED BLOOD COUNT 3.85 10*6/uL (4.10-5.10); RED CELL DISTRI WIDTH 15.8 % (0-14.5); WHITE BLOOD COUNT 9.5 10*3/uL (4.8-10.8)
[2020-02-17 06:44] LABS: PLATELET SUFFICIENCY NORMAL (NORMAL); TOTAL CELLS COUNTED 100 #CELLS
--- NOTE | 2020-02-17 09:30 | NUR ---
PATIENT TAKEN TO 4E AT THIS TIME. BEDSIDE REPORT GIVEN TO CHAO WOLF.
--- NOTE | 2020-02-17 09:45 | NUR ---
A 59, admitted to , under the services of SONJA Carlin DO with a diagnosis of UNDER INVESTIGATION OF COVID-19, SEPSIS, PNEUMONIA. Chief complaint is NAUSEA, FEVER, CHILLS, BILATERAL LEG PAIN, SHORTNESS OF BREATH. Patient arrived via stretcher from ER. Monitor applied. Initial assessment completed. Vital signs taken and recorded. SONJA CARLIN DO notified of admission to the unit. Orders received. See assessment for past medical history, medications and allergies. Patient and/or family oriented to unit. [address] visitation policy reviewed. Clothing/patient valuable form completed. CHAO FAUSTIN
--- NOTE | 2020-02-17 10:48 | NUR ---
DR PRATER HERE AND AWARE OF CONSULT.
--- NOTE | 2020-02-17 10:55 | NUR ---
MEDICATED WITH PO NORCO ORDERED PER PT REQUEST FOR C/O "ALL OVER PAIN" RATED 10/10.
[2020-02-17] MEDS ORDERED: BUMETANIDE0.5 MG PO (11:32)
--- NOTE | 2020-02-17 11:40 | NUR ---
Lead Slot Technician in to talk to patient. Patient states lives at home with . There are 3 steps in the home. Physician: [facility]: [facility]: Patient's level of ADLs: MINIMAL ASSIST Patient has working utilities: all working DME: walker, bedside commode, wheelchair Follow-up physician's appointment after d/c: will be made by hospitalist nurse director upon discharge Does patient want to access PORTAL?: no Discharge plan discussed. she lives at home with , she uses a wlaker for ambulation or wheelchair, she requires minimal assistance with adls, discharge plan is undecided at this time, case mangement will follow. CONOR ODOM
--- NOTE | 2020-02-17 11:59 | NUR ---
DR STUBBS NOTIFIED OF MED REC BEING UPDATED.
--- NOTE | 2020-02-17 12:00 | NUR ---
MEDICATION SOMEWHAT EFFECTIVE FOR PAIN.
[2020-02-17 14:08] LABS: ABG BASE EXCESS 0.8 mmol/L (-2.0-2.0); ARTERIAL BLOOD GAS PH 7.454 (7.35-7.45)
--- NOTE | 2020-02-17 15:21 | NUR ---
DR RDORÍGUEZ AWARE OF CONSULT AND WILL ORDER CHEST CT. SHE IS AWARE THE PT HAS NOT HAD HER MONTHLY GAMUNEX-C INFUSION SINCE MAY.
--- NOTE | 2020-02-17 15:25 | NUR ---
DR STUBBS AWARE THAT [facility] HAS ORDERED CHEST CT AND IS AWARE THAT PT HAS NOT HAD A GAMUNEX-C INFUSION SINCE MAY.
--- NOTE | 2020-02-17 18:39 | NUR ---
MEDICATED WITH WING COLEYCO BY MONROE WOLF.
--- NOTE | 2020-02-17 19:18 | NUR ---
DR RODRÍGUEZ PAGEBenita FOR CT RESULTS.
[2020-02-18] VITALS: BP 129/61
--- NOTE | 2020-02-18 05:52 | NUR ---
NORCO GIVEN PER PRN ORDER PER REQUEST FOR C/O PAIN RATED 8/10
[2020-02-18 06:30] LABS: HEMATOCRIT 30.7 % (37.0-47.0); MEAN CELL VOLUME 84.1 fl (81.0-99.0); MEAN CORPUSCULAR HGB 25.8 pg (27.0-31.0); MEAN CORPUSCULAR HGB CONC 30.6 g/dl (33.0-37.0); MEAN PLATELET VOLUME 9.3 fl (9.6-12.3); PLATELET COUNT AUTOMATED 228 10*3/uL (130-400); RED BLOOD COUNT 3.65 10*6/uL (4.10-5.10); RED CELL DISTRI WIDTH 15.8 % (0-14.5); WHITE BLOOD COUNT 9.4 10*3/uL (4.8-10.8)
--- NOTE | 2020-02-18 06:52 | NUR ---
NORCO INEFFECTIVE FOR PAIN THIS AM. KPAD GIVEN, MILK AND TUMS
[2020-02-18 07:02] LABS: ALBUMIN 2.6 gm/dl (3.1-4.5); ALKALINE PHOSPHATASE 51 U/L (45-117); BUN 21 mg/dl (7-24); CHLORIDE 108 mmol/L (98-107); CREATININE 0.67 mg/dL (0.55-1.02); LDH 116 U/L (84-246); SGOT/AST 7 IU/L (3-35); SGPT/ALT 15 U/L (12-78); SODIUM 140 mmol/L (136-145); TOTAL PROTEIN 6.3 gm/dL (6.4-8.2)
--- NOTE | 2020-02-18 07:05 | NUR ---
DR NORTON NOTIFIED OF C/O INDIGESTION AND REQUEST FOR "SOMETHING TO COAT MY STOMACH"
[2020-02-18 07:17] LABS: PLATELET SUFFICIENCY NORMAL (NORMAL); TOTAL CELLS COUNTED 100 #CELLS
--- NOTE | 2020-02-18 07:44 | NUR ---
Patient resting quietly with no c/o discomfort. Respirations easy and regular. Vital signs stable. No overt distress. JULY ABRAMS
--- NOTE | 2020-02-18 07:51 | NUR ---
PT C.O OF BACK LIMON AND RIGHT SIDE PAIN RATING 10/10 OFFERED KPAD PT REFUSED, PRN MORPHINE GIVEN PER ORDER
[2020-02-18 08:00] VITALS: BP 128/60
--- NOTE | 2020-02-18 08:30 | NUR ---
PER PT MORPHINE WAS EFFECTIVE
--- NOTE | 2020-02-18 11:31 | NUR ---
PT C/O OF GENERALIZED PAIN ALL OVER AGRRED TO KPAD, AND PRN NORCO GIVNE FOR PAIN RATING 6/10
[2020-02-18 12:00] VITALS: BP 158/79
--- NOTE | 2020-02-18 12:02 | NUR ---
PER PT NOROCO WAS EFFECTIVE BUT PT HAVING GI UPSET AND NAUSEA, PRN ZOFRAN GIVEN AND ONE TIME DOSE OF MALOX GIVEN PER ORDER
--- NOTE | 2020-02-18 12:24 | NUR ---
Received call from priyanka Torres [facility] field nurse case manager . She asked for a short update and stated if she has any needs she can help with she can be called.
--- NOTE | 2020-02-18 12:45 | NUR ---
PER PT MALOX AND ZOFRAN WAS EFFECTIVE
--- NOTE | 2020-02-18 15:20 | NUR ---
PHYSICAL THERAPY Eval order received attempted to see pt at the bedside,lying in bed with Kpad on R side. At this time pt declining therapy stating "I'm into too much pain from the pleuresy on my R side" stating she just "got comfortable" discussed PT and subjective/home information obtained. Will follow tomorrow spoke with primary nurse Aman wheat pt decling therapy at this time. Brenna George PT
--- NOTE | 2020-02-18 15:30 | NUR ---
OT NOTE Occupational therapy order received, chart reviewed, and attempted to see patient at bedside. Nursing gave approval to see patient. She is in airborne precautions for suspected COVID-19. Patient educated on benefits of OT and declined an OT evaluation at this time stating, "I'm in too much pain from the pleuresy of my right side...I just got comfortable...I'm not feeling well." Patient's PLOF was obtained, and she was agreeable to an OT evaluation tomorrow. Will check back tomorrow. Spoke with primary nurse Angie about patient's refusal. Vanesa Glass, OTR/L
[2020-02-18 16:00] VITALS: BP 118/47
--- NOTE | 2020-02-18 16:40 | NUR ---
PT C/O OF PAIN ALL OVER RATING 6/10, SKIN ASSESSED WHERE KPAD IS PLACED, SKIN INTACT. PRN NORCO GIVEN PER ORDER FOR PAIN
--- NOTE | 2020-02-18 17:20 | NUR ---
PER PT PRN NORCO WAS EFFECTIVE
--- NOTE | 2020-02-18 19:13 | NUR ---
22 STARTED IN LEFT FOREARM ON FIRST ATTEMPT PT TOLERATED WELL.
[2020-02-18 20:00] VITALS: BP 149/64
--- NOTE | 2020-02-18 22:00 | NUR ---
Patient resting quietly with no c/o discomfort. Respirations easy and regular. Vital signs stable. No overt distress. JULY ABRAMS
[2020-02-19] VITALS: BP 123/57
[2020-02-19 06:26] LABS: HEMATOCRIT 28.5 % (37.0-47.0); LYMPH # 0.3 10*3/uL (1.3-4.4); LYMPH % 5.2 % (27.0-41.0); MEAN CELL VOLUME 85.1 fl (81.0-99.0); MEAN CORPUSCULAR HGB 25.7 pg (27.0-31.0); MEAN CORPUSCULAR HGB CONC 30.2 g/dl (33.0-37.0); MONO # 0.4 10*3/uL (0.1-1.0); MONO % 5.9 % (3.0-9.0); NEUT # 5.4 10*3/uL (2.3-7.9); NEUT % 87.9 % (47.0-73.0); PLATELET COUNT AUTOMATED 233 10*3/uL (130-400); RED BLOOD COUNT 3.35 10*6/uL (4.10-5.10); RED CELL DISTRI WIDTH 15.7 % (0-14.5); WHITE BLOOD COUNT 6.1 10*3/uL (4.8-10.8)
[2020-02-19 06:53] LABS: BUN 24 mg/dl (7-24); CHLORIDE 107 mmol/L (98-107); CREATININE 0.54 mg/dL (0.55-1.02); POTASSIUM 4.1 mmol/L (3.5-5.1); SODIUM 141 mmol/L (136-145)
--- NOTE | 2020-02-19 07:38 | NUR ---
IV MORPHINE GIVEN PER PT REQUEST FOR C/O GENERALIZED PAIN RATED 8/10
[2020-02-19 08:00] VITALS: BP 132/69
--- NOTE | 2020-02-19 09:00 | NUR ---
case management talks with patient, she states she would like to return home when discharged, case management will follow
[2020-02-19 12:00] VITALS: BP 146/67
--- NOTE | 2020-02-19 12:28 | NUR ---
Occupational Therapy evaluation completed on four with full evaluation to follow. Recommend occupational therapy per plan of care and SNF upon discharge. If refused, home with with 08/10 supervision assist. Thank you for this referral. Vanesa Glass OTR/L
--- NOTE | 2020-02-19 12:30 | NUR ---
PHYSICAL THERAPY Physical Therapy evaluation completed on 4th floor with full evaluation to follow. Pt would benefit from physical therapy per plan of care and further rehab/SNF upon discharge. Thank you for this referral. Brenna George PT
[2020-02-19 16:00] VITALS: BP 143/81
[2020-02-19 20:00] VITALS: BP 164/81
--- NOTE | 2020-02-19 21:28 | NUR ---
MEDICATED WITH PRN MORPHINE FOR CO PAIN ALL OVER. WILL ASSESS EFFECTIVENESS.
--- NOTE | 2020-02-19 22:22 | NUR ---
MEDICATED WITH ZOFRAN FOR CO NAUSEA. WILL ASSESS EFFECTIVENESS.
--- NOTE | 2020-02-19 22:28 | NUR ---
MORPHINE UNEFFECTIVE PER PATIENT.
--- NOTE | 2020-02-19 23:22 | NUR ---
ZOFRAN SOMEWHAT EFFECTIVE PER PATIENT.
[2020-02-20] VITALS: BP 133/61
--- NOTE | 2020-02-20 00:14 | NUR ---
MEDICATED WITH PRN NORCO FOR CO PAIN ALL OVER. WILL ASSESS EFFECTIVENESS.
--- NOTE | 2020-02-20 01:14 | NUR ---
PER PATIENT NORCO NOT VERY EFFECTIVE.
--- NOTE | 2020-02-20 03:51 | NUR ---
24 HR chart check completed.
--- NOTE | 2020-02-20 05:35 | NUR ---
MEDICATED WITH PRN MORPHINE FOR CO PAIN ALL OVER. WILL ASSESS EFFECTIVENESS.
--- NOTE | 2020-02-20 06:35 | NUR ---
MORPHINE ONLY SOMEWHAT EFFECTIVE PER PATIENT.
[2020-02-20 08:00] VITALS: BP 128/67
[2020-02-20 09:37] LABS: BASO % 0.2 % (0.0-1.0); HEMATOCRIT 30.9 % (37.0-47.0); LYMPH # 0.4 10*3/uL (1.3-4.4); LYMPH % 6.3 % (27.0-41.0); MEAN CELL VOLUME 83.7 fl (81.0-99.0); MEAN CORPUSCULAR HGB 25.5 pg (27.0-31.0); MEAN CORPUSCULAR HGB CONC 30.4 g/dl (33.0-37.0); MEAN PLATELET VOLUME 9.3 fl (9.6-12.3); MONO # 0.4 10*3/uL (0.1-1.0); MONO % 6.3 % (3.0-9.0); NEUT # 5.5 10*3/uL (2.3-7.9); NEUT % 84.9 % (47.0-73.0); PLATELET COUNT AUTOMATED 250 10*3/uL (130-400); RED BLOOD COUNT 3.69 10*6/uL (4.10-5.10); RED CELL DISTRI WIDTH 15.3 % (0-14.5); WHITE BLOOD COUNT 6.5 10*3/uL (4.8-10.8)
[2020-02-20 09:53] LABS: ALBUMIN 2.7 gm/dl (3.1-4.5); ALKALINE PHOSPHATASE 52 U/L (45-117); BUN 23 mg/dl (7-24); CHLORIDE 105 mmol/L (98-107); CREATININE 0.66 mg/dL (0.55-1.02); POTASSIUM 3.8 mmol/L (3.5-5.1); SGOT/AST 7 IU/L (3-35); SGPT/ALT 13 U/L (12-78); SODIUM 140 mmol/L (136-145); TOTAL PROTEIN 6.3 gm/dL (6.4-8.2)
[2020-02-20 12:00] VITALS: BP 119/74
[2020-02-20 16:00] VITALS: BP 148/53
[2020-02-20 20:00] VITALS: BP 155/67
--- NOTE | 2020-02-20 23:30 | NUR ---
PT INCONSLOABLE IN BED, PT STAES "I HAVE TOO MUCH PAIN I WANT TO SEE A DR" PT ALSO C/O HARD TO BREATH BECAUSE OF PAIN SPO2=94% ON 3L/NC, RESPITORY NOTIFIED AND AT BEDSIDE, PT WAS UNSURE OR UNCERTAIN IF SHE NEEDED BREATHING TX OR NOT, PHYSICIAN DR FRANCISCO OF PT CONCERNS AND VERBALIZED DISTRESS, 2MG IV MS EXTRA GIVEN NOW PER ORDER, JEFFERSON NGUYEN RN IN TO HELP CALM PATIENT TO NO AVAIL, PHYSICIAN NOTIFIED AGAIN, WILL CONTINUE TO MONITOR OR ASSIST
[2020-02-21] VITALS: BP 131/69
--- NOTE | 2020-02-21 00:15 | NUR ---
MS INEFFECTIVE, DR FRANCISCO NOTIFIED
--- NOTE | 2020-02-21 01:40 | NUR ---
PRN IV PAIN MEDICATION GIVEN PER PT REQUEST FOR 12/25 GENERALIZED PAIN
--- NOTE | 2020-02-21 02:40 | NUR ---
PT RESTING QUIETLY WITH EYES CLOSED AND VERBALIZES NO C/O AT THIS TIME
[2020-02-21 08:00] VITALS: BP 93/64
--- NOTE | 2020-02-21 08:00 | NUR ---
PT UPSET THAT OXYGEN WAS REMOVED TO ASSESS ROOM AIR PULSE OX, PT STARTED SCREAMING AND YELLING PROFANITIES AT NURSE, EDUCATED PT THAT WE NEED TO SEE HOW SHES DOING WITHOUT OXYGEN, PT DID NOT REQUIR OXYGEN PRIO TO ADMISSION. OXYGEN REMOVED, AND REASSES AFTER 5 MINUTES PULSE OX WAS 95% ON ROOM AIR, ASSESSED AGAIN AFTER 10 MINUTES AND REMAINED AT 95% ON ROOM AIR, CONT PULSE OX ON PT TO CONTINUE MONITORING
--- NOTE | 2020-02-21 08:00 | NUR ---
ON ASSESSMENT, PT HAD THREE LIDOCAIN PATCHES ON HER BACK PT ADMITTED THAT TWO OF THEM WERE HERS, INFORMED PT THAT I WILL NEED TO REMOVE THE TWO THAT SHE BROUGHT IN FROM HOME, PT REFUSED, ASKED PT IF SHE HAD ANY OF HOME MEDS ON HER OR IN HER BAG, PER PT " IF I DO YOU AINT GETTING THEM" PT REFUSED TO ALLOW NURSE TO LOOK IN BAG, NOTIFIED KELLY POWER NOTIFIED
--- NOTE | 2020-02-21 08:30 | NUR ---
PT INFORMED OF NEW ORDER TO REMOVED SEGUNDO CATHETER, PT STARTED YELLING PROFANITIES, CALLED THIS NURSE A " HORTENCIA FELICIANO" STATED " YOU'RE NOT TOUCHING ME, I HAVE RIGHTS" PT REQUEST MORPHINE, PT NOTIFIED THAT MORPHINE HAS BEEN D/C'D D/T PT REFUSAL TO REMOVE HOME LIDOCAIN PATCHES, PT AGAIN STARTED YELLING PROFANITIES
--- NOTE | 2020-02-21 09:45 | NUR ---
IN TO CHECK PULSE OX BECAUSE PT REMOVED HER CONT PULSE OX, INSTRUCTED PT TO PLEASE KEEP ON, PT STATED " I'LL DO WHAT I WANT" PT INFORMED THAT BRIJESHMS HAS BEEN D/C'D AT THIS TIME FOR REFUSAL OF REMOVAL OF MULTIPLE LIDOCAINE PATCHES, AGAIN ATTEMPTED TO REMOVED SEGUNDO CATHETER, PT STARTED SCREAMING THAT I'M NOT ALLOWED TO TOUCH, STATED SHE CAN'T MOVE, PT YELLING ALL WHILE WAVING ARMS IN AIR AND REPOSITIONING IN BED. RIO TRIED TO EDUCATE PT ON NEED FOR REMOVAL OF SEGUNDO, RISK OF INFECTION AND THAT WE.D HELP HER TO THE BEDSIDE ON A BED LIMON, PT THEN STATED " IF YOU REMOVED THIS FUCKING SEGUNDO I'M GOING TO PISS ALL OVER THIS FUCKING GLOOR SO YOU HAVE TO KEEP CLEANING IT UP" I WANT MY FUCKING MORPHINE, TELL THAT SON OF A BITCH TO GIVE ME MY MORPHINE AND HE CAN HAVE THIS SEGUNDO" TOLD PT I WOULD INFORM THE PHYSICIAN, BUT THAT HE WASN'T GOING TO GIVE HER ANYTHING WHILE SHE WAS REFUSING THE LIDOCAIN PATCH REMOVA, PT AGREED TO ALLOW ME TO REMOVE TWO OF THE PATCHES SHE PLACED, I TOLD HER I WILL NOTIFY , THEN PT STARTED YELLING AT ME AGAIN TELLING ME SHE'S FIRING HIM AND SHE WANTED THE DOG BARBER AND HOSPITAL ADMINISTRATION IN THERE NOW! KELLY POWER NOTIFIED
--- NOTE | 2020-02-21 10:19 | NUR ---
DISCUSSED WITH AFTER APPROVAL FROM PATIENT, INFORMED HIM THAT SHE WAS BEING NONCOMPLIANT AND UNCOOPERATIVE WITH CARE, YELLING AT STAFF, REFUSING TREATMENT, AND EXHIBITING PAIN SEEKING BEHAVIOR PER HE WILL TALK TO HER BECASE HE TOO IS SICK WITH COVID AND OF RIGHT NOW THE PATIENT HAS NO WHERE TO GO OR ANYONE TO PICK HER UP, DISCUSSED POSSIBLE DISCHARGE TODAY, PER THERE IS NOWHERE SHE CAN GO.
--- NOTE | 2020-02-21 10:21 | NUR ---
CALLED BACK ASKING IF WOULD PLEASE CONSIDER GIVING HER BACK HER NORCO AND MORPHINE, I INFORMED HIM THAT I WILL ASK BUT HE IS WITH OTHER PATIENTS AT THE MOMENT
--- NOTE | 2020-02-21 12:00 | NUR ---
DISCUSSED AT LENGTH WITH PT THE DANGERS OF TAKING HER OWN MEDS, PT VERY ARGUMENTATIVE AND REFUSING TO ALLOW NURSE TO LOOK INTO PURSE, EVENTUALLY PT DID REMOVE ALL HER MEDS, SEVERAL BOTTLS INCLUDING PAIN PILLS AND ONE EMPTY BOTTLE OF NORCO. ALL MEDS REMOVED FROM ROOM.
[2020-02-21] MEDS ORDERED: PERCOCET 10-321 EACH PO (12:18)
[2020-02-21] MEDS ORDERED: CYCLOBENZAPRINE10 MG PO (13:09)
[2020-02-21] MEDS ORDERED: MUCUS RELIEF600 MG PO (13:09)
[2020-02-21] MEDS ORDERED: DECADRON4 MG PO (13:09)
[2020-02-21] MEDS ORDERED: ADV 500/50 INH (13:09)
--- NOTE | 2020-02-21 14:57 | NUR ---
HOME O2 ASSESSMENT: SPO2 ON RA AT REST: 95% HR 74 SPO2 RA AMBULATIN% HR 80 PT DOSE NOT QUALIFY FOR HOME O2.
--- NOTE | 2020-02-21 15:01 | NUR ---
Discharge instructions reviewed with patient/family. Patient receptive and verbalizes understanding. Follow-up care arranged. Written instructions given to patient/family. YAO OG
== END 2020-02-21 15:01 | disposition home or self-care (01) | DRG 720 ==
LOC: ED 15:12 → EDHOLD 18:28 → 4E 18:28 → EDHOLD 19:03 → ICCU 02-17 07:59 → 4E 02-17 08:42
PROVIDERS: Emergency Medicine; Hospitalist; Internal Medicine; ADMIT Internal Medicine; ATTEND Internal Medicine
PROC: XW033E5 Introduction of Remdesivir Anti-infective into Peripheral Vein, Percutaneous Approach, New Technology Group 5 (ICD-10-PCS; principal; 2020-02-18)
DX: A41.9 Sepsis, unspecified organism (principal); R65.20 Severe sepsis without septic shock; U07.1 COVID-19; J96.01 Acute respiratory failure with hypoxia; D83.9 Common variable immunodeficiency, unspecified; E44.0 Moderate protein-calorie malnutrition; J45.901 Unspecified asthma with (acute) exacerbation; D64.9 Anemia, unspecified; K21.9 Gastro-esophageal reflux disease without esophagitis; E03.9 Hypothyroidism, unspecified; I10 Essential (primary) hypertension; E11.9 Type 2 diabetes mellitus without complications; J44.1 Chronic obstructive pulmonary disease with (acute) exacerbation; I48.21 Permanent atrial fibrillation; E66.9 Obesity, unspecified; J44.0 Chronic obstructive pulmonary disease with (acute) lower respiratory infection; D68.59 Other primary thrombophilia; G89.29 Other chronic pain; F43.20 Adjustment disorder, unspecified; Z88.2 Allergy status to sulfonamides; Z88.6 Allergy status to analgesic agent; Z88.1 Allergy status to other antibiotic agents; Z91.018 Allergy to other foods; Z79.899 Other long term (current) drug therapy; Z79.01 Long term (current) use of anticoagulants; Z79.1 Long term (current) use of non-steroidal anti-inflammatories (NSAID); Z79.4 Long term (current) use of insulin; Z79.51 Long term (current) use of inhaled steroids; Z68.35 Body mass index [BMI] 35.0-35.9, adult; J18.9 Pneumonia, unspecified organism

== ENCOUNTER 2020-04-28 08:47 | Inpatient (IN) | payer OTHER ==
[~2020-04-28] VITALS: Ht 167.6 cm; Wt 107.2 kg
[2020-04-28] VITALS (11 sets, daily range): BP systolic 74–147; BP diastolic 49–80
[~2020-04-28 08:47] MED LIST changes: +ADV 500/50 INH; +CYCLOBENZAPRINE10 MG PO; +DECADRON4 MG PO; +MUCUS RELIEF600 MG PO; +PERCOCET 10-321 EACH PO
[2020-04-28 09:36] LABS: BASO % 0.4 % (0.0-1.0); EOS # 0.1 10*3/uL (0.0-0.4); EOS % 1.3 % (1.0-4.0); HEMATOCRIT 36.3 % (37.0-47.0); LYMPH % 13.1 % (27.0-41.0); MEAN CELL VOLUME 82.7 fl (81.0-99.0); MEAN CORPUSCULAR HGB 24.6 pg (27.0-31.0); MEAN CORPUSCULAR HGB CONC 29.8 g/dl (33.0-37.0); MEAN PLATELET VOLUME 9.6 fl (9.6-12.3); MONO # 0.5 10*3/uL (0.1-1.0); MONO % 6.9 % (3.0-9.0); NEUT % 77.8 % (47.0-73.0); PLATELET COUNT AUTOMATED 299 10*3/uL (130-400); RED BLOOD COUNT 4.39 10*6/uL (4.10-5.10); RED CELL DISTRI WIDTH 16.1 % (0-14.5); WHITE BLOOD COUNT 7.7 10*3/uL (4.8-10.8)
[2020-04-28 09:47] LABS: ACT PARTIAL THROMBO TIME 28.1 SECONDS (20.0-32.1)
[2020-04-28 09:51] LABS: ALBUMIN 3.2 gm/dl (3.1-4.5); ALKALINE PHOSPHATASE 54 U/L (45-117); BUN 16 mg/dl (7-24); CHLORIDE 107 mmol/L (98-107); CREATININE 0.84 mg/dL (0.55-1.02); POTASSIUM 3.8 mmol/L (3.5-5.1); SGOT/AST 8 IU/L (3-35); SGPT/ALT 16 U/L (12-78); SODIUM 140 mmol/L (136-145); TOTAL PROTEIN 6.5 gm/dL (6.4-8.2)
[2020-04-28 09:56] LABS: TROPONIN I < 0.015 ng/ml (<0.045)
[2020-04-28] MEDS ORDERED: ADV 500/50 INH (13:02)
[2020-04-28] MEDS ORDERED: DIOVAN80 M1 PO (13:04)
[2020-04-28] MEDS ORDERED: BISOPROLOL FUMAR5 MG PO (13:04)
[2020-04-28] MEDS ORDERED: LIDOCAINE28.35 GM T (16:51)
[2020-04-29] VITALS: BP 156/57
[2020-04-29 04:00] VITALS: BP 122/68
[2020-04-29 06:08] LABS: BUN 16 mg/dl (7-24); CHLORIDE 111 mmol/L (98-107); SODIUM 142 mmol/L (136-145)
[2020-04-29 06:09] LABS: BASO % 0.4 % (0.0-1.0); EOS # 0.2 10*3/uL (0.0-0.4); HEMATOCRIT 32.4 % (37.0-47.0); LYMPH # 0.9 10*3/uL (1.3-4.4); LYMPH % 15.5 % (27.0-41.0); MEAN CELL VOLUME 81.8 fl (81.0-99.0); MEAN CORPUSCULAR HGB CONC 29.3 g/dl (33.0-37.0); MEAN PLATELET VOLUME 10.2 fl (9.6-12.3); MONO # 0.5 10*3/uL (0.1-1.0); MONO % 8.7 % (3.0-9.0); NEUT # 4.1 10*3/uL (2.3-7.9); PLATELET COUNT AUTOMATED 250 10*3/uL (130-400); RED BLOOD COUNT 3.96 10*6/uL (4.10-5.10); RED CELL DISTRI WIDTH 16.1 % (0-14.5); WHITE BLOOD COUNT 5.6 10*3/uL (4.8-10.8)
[2020-04-29 06:13] LABS: ALKALINE PHOSPHATASE 46 U/L (45-117); CREATININE 0.59 mg/dL (0.55-1.02); SGOT/AST 7 IU/L (3-35); SGPT/ALT 12 U/L (12-78); TOTAL PROTEIN 6.1 gm/dL (6.4-8.2)
[2020-04-29 06:20] LABS: ACT PARTIAL THROMBO TIME 28.4 SECONDS (20.0-32.1)
[2020-04-29 08:00] VITALS: BP 150/70
[2020-04-29 08:38] LABS: BILIRUBIN Negative (Negative); BLOOD 2+ (Negative); CLARITY Clear (Clear); COLOR Yellow (Yellow); GLUCOSE Negative (Negative); KETONE Negative (Negative); LEUKO ESTERASE 1+ (Negative); NITRITE Negative (Negative); UROBILINOGEN 0.2 E.U./dl (0.0-1.0)
[2020-04-29 09:06] LABS: BACTERIA 1+; RBC 41-50 rbc/hpf (0-2); WBC 21-30 wbc/hpf (0-5)
[2020-04-29 12:00] VITALS: BP 132/84
[2020-04-29] MEDS ORDERED: BISOPROLOL FUMAR5 MG PO (12:11)
== END 2020-04-29 14:30 | disposition home or self-care (01) | DRG 207 ==
LOC: ED 08:47 → EDHOLD 10:17 → ICCU 10:17
PROVIDERS: Emergency Medicine; Internal Medicine; ADMIT Internal Medicine; ATTEND Internal Medicine
DX: I95.9 Hypotension, unspecified (principal); I48.0 Paroxysmal atrial fibrillation; R00.0 Tachycardia, unspecified; D64.9 Anemia, unspecified; E87.2 Acidosis; M54.32 Sciatica, left side; G35 Multiple sclerosis; M41.9 Scoliosis, unspecified; M50.220 Other cervical disc displacement, mid-cervical region, unspecified level; E03.9 Hypothyroidism, unspecified; K21.9 Gastro-esophageal reflux disease without esophagitis; E55.9 Vitamin D deficiency, unspecified; I11.0 Hypertensive heart disease with heart failure; I50.22 Chronic systolic (congestive) heart failure; C55 Malignant neoplasm of uterus, part unspecified; J45.909 Unspecified asthma, uncomplicated; D83.9 Common variable immunodeficiency, unspecified; E11.65 Type 2 diabetes mellitus with hyperglycemia; I42.8 Other cardiomyopathies; M79.7 Fibromyalgia; Z79.4 Long term (current) use of insulin; Z86.16 Personal history of COVID-19; Z88.6 Allergy status to analgesic agent; Z88.2 Allergy status to sulfonamides; Z88.1 Allergy status to other antibiotic agents; Z88.8 Allergy status to other drugs, medicaments and biological substances; Z91.018 Allergy to other foods; Z83.3 Family history of diabetes mellitus; Z82.49 Family history of ischemic heart disease and other diseases of the circulatory system; Z79.899 Other long term (current) drug therapy; Z82.0 Family history of epilepsy and other diseases of the nervous system; Z92.3 Personal history of irradiation